=== PATIENT | female | born 1960 | race Caucasian/White ===

== ENCOUNTER → 2019-10-11 10:32 | Outpatient (CLI) | payer OTHER, SELFPAY ==
--- NOTE | ~2019-10-11 | MR_ITS ---
EXAMINATION: MR lumbar spine wo [facility] EXAM DATE: 10/11/2019 12:13 INDICATION: Low back pain, bilateral leg and foot numbness. TECHNIQUE: Multi-sequential, multiplanar MR images of the lumbar spine were obtained without contrast . Sagittal T1, T2, T2 fat saturation images. Axial T2 weighted images. There is no prior study for comparison. FINDINGS: There is an L4 burst fracture with moderate to severe loss of this vertebral body height an teriorly and centrally, and moderate loss posteriorly. There is about 3 mm retropulsion at the superi or endplate. There is mild edema within this vertebral body indicating that this is probably subacute , or has subacute component. The other vertebral body heights are maintained. There is mild disc dise ase from L3 through S1. The conus medullaris terminates at the L1/2 level and has normal signal inten sity and morphology. The vertebral bodies are aligned in the AP dimension. Probable posterior sebace ous cyst. Level by level evaluation: T12-L1: Disc does not extend beyond the endplate margin. Facet arthropathy: None. Neural foraminal stenosis: No stenosis. Central canal stenosis: No stenosis. L1-L2: There is a minimal diffuse disc bulge. Facet arthropathy: Mild. Neural foraminal stenosis: No stenosis. Central canal stenosis: No stenosis. L2-L3: There is a minimal diffuse disc bulge. Facet arthropathy: Mild. Neural foraminal stenosis: No stenosis. Central canal stenosis: No stenosis. L3-L4: There is a large diffuse disc bulge. Facet arthropathy: Moderate to severe . Ligamentum flavum enlargement. Neural foraminal stenosis: Moderate right, mild to moderate left. Central canal stenosis: Moderate. Nerve root crowding.. L4-L5: There is a moderate diffuse disc bulge. Facet arthropathy: Moderate. Neural foraminal stenosis: Mild to moderate bilateral, left greater than right. Central canal stenosis: Mild to moderate. L5-S1: There is a mild diffuse disc bulge. Facet arthropathy: Mild to moderate. Neural foraminal stenosis: Mild to moderate bilateral, left greater than right. Central canal stenosis: Mild. IMPRESSION: 1. L4 subacute-appearing burst fracture with mild retropulsion, moderate central canal stenosis at t he superior endplate. 2. Mild to moderate lower lumbar spondylosis. Reviewed, dictated and finalized at location A. IMPRESSION: 1. L4 subacute-appearing burst fracture with mild retropulsion, moderate centr al canal stenosis at the superior endplate. 2. Mild to moderate lower lumbar spondylosis.
== END ==
DX: M51.26 Other intervertebral disc displacement, lumbar region (principal); S32.000A Wedge compression fracture of unspecified lumbar vertebra, initial encounter for closed fracture; M47.816 Spondylosis without myelopathy or radiculopathy, lumbar region
CPT/HCPCS: 72148

== ENCOUNTER 2019-10-25 10:01 | Outpatient (CLI) | payer OTHER, SELFPAY ==
--- NOTE | ~2019-10-25 | DEXA_ITS ---
Bone Density Report Name: Maxine Rodriguez Age: 58 Sex: Female Ethnicity: White Date of : 1960 Indication: postmenopausal; prior fracture; Referring Provider: PHYSICIAN NOT ON STAFF Study: Bone densitometry was performed. Exam Date: October 25, 2019 Accession number: [id number] Bone Density: Region BMD T-score Z-score Classification AP Spine (L1, L2, L3) 1.056 0.3 1.6 Normal Femoral Neck (Left) 0.915 0.6 1.8 Normal Total Hip (Left) 1.058 1.0 1.8 Normal Total Hip Bilateral Avg 1.096 1.3 2.1 Normal Femoral Neck (Right) 0.820 -0.3 1.0 Normal Total Hip (Right) 1.132 1.6 2.4 Normal World Health Organization criteria for BMD impression classify patients as: Normal (T-score at or above -1.0), Osteopenia (T-score between -1.0 and -2.5), or Osteoporosis (T-score at or below -2.5). 10-year Fracture Risk: FRAX not reported because: All T-scores for Spine Total, Hip Total, Femoral Neck at or above -1.0 Prior hip or vertebral fracture Clinical Information Provided by Patient: Have had a previous hip or vertebral fracture Has had a low trauma fracture Patient maximum height was 60 Menopause Age: 50 No regular weight bearing exercise Onset of menses at age 12 Number of children 1 Impression: The patient has normal bone mass. The patient has risk factors, including: previous fracture. Discussion: INCREASED RISK OF FRACTURE DUE TO HISTORY OF FRACTURE. The patient's previous fracture puts the patient at high risk of a future fracture. In untreated patients, the risk of osteoporotic fracture increases approximately two-fold for each 1.0 SD decrease in T-score. Low bone density is not the only risk factor for fracture; also consider factors such as patient's age, frailty or poor health, risk of falling, risk of injury, previous osteoporotic fracture, family history of osteoporosis, cigarette smoking, low body weight, etc. Not everyone with a low trauma fracture has osteoporosis; osteomalacia and other metabolic bone disorders should also be considered. Patients who have osteoporosis should be evaluated for specific diseases and conditions (secondary causes) that may cause or contribute to bone loss and fracture risk. National Osteoporosis Foundation (NOF) recommends pharmacologic intervention for patients with a prior hip or vertebral fracture regardless of BMD T-score. The patient should follow a healthful lifestyle (good nutrition with adequate calcium and vitamin D, and appropriate weight-bearing exercise). Follow-Up: Consider a repeat BMD and Vertebral Fracture Assessment (VFA) exam in 2 years or sooner if medically necessary, to reassess this patient's status. Reported by: DO on 10/25/2019 10:35:00 AM. Reviewed, dictated and finalized at location ANik MIRELES
== END 2019-10-25 10:02 | disposition home or self-care (01) ==
LOC: ANHIMG 10:04
PROVIDERS: PCP Internal Medicine
DX: S22.001A Stable burst fracture of unspecified thoracic vertebra, initial encounter for closed fracture (principal); Z78.0 Asymptomatic menopausal state
CPT/HCPCS: 77080

== ENCOUNTER 2019-10-29 17:48 | Outpatient (CLI) | payer OTHER, SELFPAY ==
--- NOTE | ~2019-10-29 | CT_ITS ---
EXAMINATION: CT lumbar spine wo con DATE: 10/29/2019 18:30 INDICATION: Closed burst fracture of lumbar vertebra. TECHNIQUE: Computed tomography (CT) of the lumbar spine was performed without intravenous contrast. A utomated exposure control and iterative reconstruction technique were employed. The dose-length produ ct was 1220.94 mGy-cm. COMPARISON: Lumbar spine MRI 10/11/2019 FINDINGS: There is 9 degrees levocurvature of lumbar spine. There is a burst fracture of L4 with 3/5 loss of height and retropulsion of bone 5 mm into central spinal canal. Lucent fracture lines remain visible. There is mildly decreased disc height at L3-L4. The following disc levels are specifically d iscussed: L1-L2: The disc does not extend beyond the endplate margin. There is mild bilateral facet joint osteo arthritis. There is no neural foraminal stenosis. There is no central canal stenosis. L2-L3: The disc is mildly bulging. There is moderate right and mild left facet joint osteoarthritis. There is mild bilateral neural foraminal stenosis. There is no central canal stenosis. L3-L4: The disc is bulging. There is severe bilateral facet joint osteoarthritis. There is moderate r ight and mild left neural foraminal stenosis. There is moderate central canal stenosis. L4-L5: The disc is bulging. There is severe bilateral facet joint osteoarthritis. There is mild bilat eral neural foraminal stenosis. There is mild central canal stenosis. L5-S1: The disc is bulging. There is severe bilateral facet joint osteoarthritis. There is mild bilat eral neural foraminal stenosis. There is mild central canal stenosis. IMPRESSION: 1. Subacute L4 burst fracture, stable from 10/11/2019. 2. Moderate lumbar spondylosis. Reviewed, dictated and finalized at location B.
== END 2019-10-29 17:49 | disposition home or self-care (01) ==
PROVIDERS: PCP Internal Medicine
DX: S22.001A Stable burst fracture of unspecified thoracic vertebra, initial encounter for closed fracture (principal); S32.041A Stable burst fracture of fourth lumbar vertebra, initial encounter for closed fracture; M47.816 Spondylosis without myelopathy or radiculopathy, lumbar region
CPT/HCPCS: 72131

== ENCOUNTER 2020-01-13 15:00 | Outpatient (RCR) | payer OTHER, SELFPAY ==
--- NOTE | 2019-11-17 10:42 | PTOPEVAL ---
PHYSICAL THERAPY EVALUATION AND PLAN OF CARE Thank you for referring Maxine Rodriugez to [facility].? The patient is scheduled to be seen for therapy? 2x/week for 4 weeks. Please review, sign, date and return this plan of care JULITO. I agree with and certify that the following plan of care is medically necessary. Referring Physician Date Evaluation Outpatient Past Medical History Musculoskeletal History Hx Back Injury Yes: stable burst fracture L4, kyphoplasty 10/31/2019 Endocrine History Hx Diabetes Yes: diet controlled Evaluation Information Problem Diagnosis closed burst fracture of L4 Onset 06/2019 Subjective Information In June 2019 she fell while walking her dog and immediately had excessive pain in the lower back. Went to urgent care and there was no imaging and no positive testing. Went to a chiropractor who adjusted one time but otherwise did modalities without relief of pain. Went to a different chiropractor who did x-rays and Maxine was informed of a compression fracture. This chiropractor did adjustments and it was going pretty good. Come 05 of September, her dog was scared and jumped on her hips which started everything over and was in a lot of pain. On October 05 she started to experience numbness and tingling in her bilateral legs. Dr. Calderón did a kyphoplasty. After the kyphoplasty the numbness and tingling did resolve for a day, but then returned to as it was. She went to the emergency department and everything was determined to be negative.Maxine is walking every day (5-7 minutes twice) and she works in her basement. She now goes up and down the stairs to go to the restroom. Notes that there is soreness in the area of the fracture but she is told that b/c she has stenosis in that area also it could be causing some of the soreness. She is also told that the numbness/tingling could last 6weeks to 6months. Bilateral Spine, Lumbar Reported Pain Level 1 Pain Frequency Chronic,Intermittent Lowest Pain Intensity 0 Greatest Pain Intensity 3 Pain Aggravating Factors Sitting Other Pain Aggravating Factors pain/numbness comes and goes Pain Behaviors Anxious Pain Relief Interventions Used By Medication,Walking Patient Lumbar ROM Lumbar Flexion (0-90) 10 Query Text:Active in Degrees Lumbar Extension (0-40) 12 Query Text:Active in Degrees Lateral Rotation Right (0-45) 23 Query Text:Active in Degrees Lateral Rotation Left (0-45) 19 Query Text:Active in Degrees Lumbar Comments all flexion is at the hips Lower Extremity Muscle Strength Testing Hip Strength Right Hip Flexion Strength 4+ Good + Hip Extension Strength 4- Good - Hip Abduction Strength 4+ Good + Left Hip Flexion Strength 4 Good Hip Extension Strength 3+ Fair + Hip Abduction Strength 4 Good Hip Strength Comments c/o some discomfort in left thigh during MMT; Knee Str
--- NOTE | 2019-12-15 16:49 | PTOPEVAL ---
PHYSICAL THERAPY PROGRESS REPORT AND PLAN OF CARE UPDATE Thank you for referring Maxine Rodriguez to [facility] [place].? The patient is scheduled to be seen for therapy? 1x/week for 4 weeks. Please review, sign, date and return this plan of care JULITO. I agree with and certify that the following plan of care is medically necessary. Referring Physician Date Progress Diagnosis closed burst fracture of L4 Onset 06/2019 Subjective Information Overall throughout therapy has Query Text:As Reported By Patient/ been doing well overall. Last Family Sunday she notes an increase in numbness again. Not to what it was, but a significant amount stating that it pretty much stays the same without a lot of fluctuation. Reports that her exercise ball did break underneath her and she because she has caught herself twisting quickly so she believes she has some irritation. Self Report Pain Assessment Bilateral Spine, Lumbar Reported Pain Level 1 Pain Description Soreness Pain Aggravating Factors Changing Position,Prolonged Position,Sitting Pain Behaviors None Interventions Used By Clinicians Exercise Pain Score Pain Score 1: Self Report Cervical and Lumbar ROM Lumbar ROM Lumbar Flexion (0-90) 10 Query Text:Active in Degrees Lumbar Extension (0-40) 15 Query Text:Active in Degrees Lateral Rotation Right (0-45) 25 Query Text:Active in Degrees Lateral Rotation Left (0-45) 25 Query Text:Active in Degrees Lumbar Comments all flexion is at the hips Hip Strength Right Hip Flexion Strength 5 Normal Hip Extension Strength 4- Good - Hip Abduction Strength 4+ Good + Left Hip Flexion Strength 4+ Good + Hip Extension Strength 3+ Fair + Hip Abduction Strength 4 Good Knee Strength Bilateral Knee Flexion Strength 5 Normal Knee Extension Strength 5 Normal Muscle Length Testing Piriformis w/Hip Flexion >90 Degrees (R) Moderate Tightness,(L) Moderate Tightness Left Hamstring Length -20 Query Text:(90 - 90 Position) Right Hamstring Length -20 Query Text:(90 - 90 Position) Right Prone Knee Flexor Muscle Length 105degrees Left Prone Knee Flexor Muscle Length 110degrees Palpation
--- NOTE | 2020-01-13 15:41 | PTOPEVAL ---
PHYSICAL THERAPY DISCHARGE NOTE Thank you for referring Maxine Rodriguez to [facility].? Please review, sign, date and return this plan of care JULITO. I agree with and certify that the following plan of care is medically necessary. Referring Physician Date Discharge Outpatient Past Medical History Musculoskeletal History Hx Back Injury Yes: stable burst fracture L4, kyphoplasty 10/31/2019 Endocrine History Hx Diabetes Yes: diet controlled Diagnosis closed burst fracture of L4 Onset 06/2019 Subjective Information does her exercises diligently Query Text:As Reported By Patient/ every night. Switches up the Family cardio between bike and stepper and does walk every morning; does her core exercises and has her help her stretching. States numbness and other sytmptoms are between 50% and 75% resolved and are intermittent Pain Assessment Timing of Pain Assessment Timing of Pain Assessment Pre-Treatment Self Report Self Report Pain Level 0 Pain Score Pain Score 0: Self Report Lower Extremity Muscle Strength Testing Hip Strength Right Hip Flexion Strength 5 Normal Hip Extension Strength 4+ Good + Hip Abduction Strength 5 Normal Left Hip Flexion Strength 5 Normal Hip Extension Strength 4+ Good + Hip Abduction Strength 5 Normal Knee Strength Bilateral Knee Flexion Strength 5 Normal Knee Extension Strength 5 Normal Palpation moderate tightness of thoracolmbar fascia; significant muscle tension noted throughout ITB and glutes, right>left - continues but does not bother patient Balance Assessment 5 Time Sit to Stand Time in Seconds 7.54 5 Time Sit to Stand Comments arm across chest Query Text:Normative Data: If Greater Than 15 Seconds, 74% Increase Risk for Recurrent Falls Gait Assessment 2 Minute Walk Total Distance Walked (feet) 429 2 Minute Walk Gait Speed Score (feet/ 3.57 second) 2 Minute Walk Test Comments 1month ago = 386ft, 3.21ft/ second PT Clinical Summary Maxine is a 59 yo female presenting to outpatient physical therapy 6months s/p L4 burst fracture with
== END 2020-01-14 12:47 | disposition home or self-care (01) ==
LOC: ANHPT 15:00
PROVIDERS: PCP Internal Medicine
DX: S22.001D Stable burst fracture of unspecified thoracic vertebra, subsequent encounter for fracture with routine healing (principal)
CPT/HCPCS: 97110; 97140; 97162

== ENCOUNTER → 2020-04-03 08:42 | Outpatient (CLI) | payer OTHER, SELFPAY ==
--- NOTE | ~2020-04-03 | MM_ITS ---
EXAMINATION: MM screening john BI w jonathan HISTORY: Screening mammogram TECHNIQUE: Craniocaudal and mediolateral oblique 3-D tomosynthesis images were obtained and synthetic 2-D images were generated. CAD analysis was submitted and interpreted. COMPARISON: 10/26/2018, 08/18/2017, 07/29/2016 bilateral digital screening mammogram examinations BREAST PARENCHYMAL COMPOSITION: There are scattered areas of fibroglandular density. FINDINGS: Stable bilateral axillary tail circumscribed low-density opacities consistent with benign i ntramammary lymph nodes. Occasional benign calcifications. There is no evidence of suspicious mass, c alcification, or architectural distortion to suggest malignancy in either breast. There has been no s uspicious interval change. IMPRESSION: 1. No mammographic evidence of malignancy. 2. Recommend routine screening mammography in one year. BI-RADS Category 2: Benign finding(s). Reviewed, dictated and finalized at location A. 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
== END ==
PROVIDERS: Visit Provider Obstetrics & Gynecology
DX: Z12.31 Encounter for screening mammogram for malignant neoplasm of breast (principal)
CPT/HCPCS: 77063; 77067

== ENCOUNTER 2020-08-18 18:42 | Emergency (ER) | payer OTHER, SELFPAY ==
[2020-08-18 19:43] VITALS: BP 157/80; PULSE 84; RESP 12; TEMP 36.6; O2SAT 100
--- NOTE | 2020-08-18 19:48 | ECG_ITS ---
Measurements Intervals [place] Rate: 89 P: 61 MT: 187 QRS: 39 QRSD: 78 T: 6 QT: 339 QTc: 413 Interpretive Statements SINUS RHYTHM POSSIBLE LEFT ATRIAL ENLARGEMENT LOW QRS VOLTAGE IN PRECORDIAL LEADS NONSPECIFIC ST & T-WAVE ABNORMALITY- ANTEROLAT/INF LEADS BASELINE ARTIFACT- V5 BORDERLINE ECG Electronically Signed On 08-19-2020 7:29:49 CDT by Ryan Kingsley D.O.
[2020-08-18 20:16] LABS: Basophils Percent Auto 0.2 % (0.2-1.2); Eosinophils Percent Auto 0.3 % (0-4.4); Hematocrit 44.1 % (37.0-47.0); Hemoglobin 14.2 g/dL (12.0-15.0); Immature Granulocyte Absolute 0.04 K/mm3 (0.00-0.031); Immature Granulocyte Percent A 0.3 % (0-0.5); Lymphocytes Absolute Auto 3.52 K/mm3 (0.9-3.2); Lymphocytes Percent Auto 26.4 % (18.3-44.2); Mean Corpuscular HGB Conc 32.2 g/dl (32-36); Mean Corpuscular Hemoglobin 27.5 pg (26-34); Mean Corpuscular Volume 85.5 fl (80-100); Monocytes Absolute Auto 0.9 K/mm3 (0.1-0.6); Monocytes Percent Auto 6.5 % (2.6-8.5); Neutrophils Absolute Auto 8.8 K/mm3 (1.3-6.7); Neutrophils Percent Auto 66.3 % (45.5-73.1); Platelet Count Result 218 k/mm3 (150-375); Red Blood Count 5.16 M/mm3 (4.2-5.4); Red Cell Distribution Width 14.5 % (11.5-14.5); White Blood Count 13.3 K/mm3 (4.5-10.0)
[2020-08-18 20:23] LABS: Add Urine Microscopic? YES; Appearance Urine Clear (Clear); Bacteria Urine 1+ /hpf; Bilirubin Urine Negative (Negative); Blood Urine Negative (Negative); Color Urine Yellow (Yellow); Glucose Urine UA Negative (Negative); Ketones Urine Negative (Negative); Leukocyte Esterase Ur Trace LEU/UL (Negative); Mucus Urine Rare /lpf; Nitrate Urine Negative (Negative); Protein Urine Negative (Negative); RBC Urine 0-2 /hpf (0-2); Specific Grav Ur 1.019 (1.001-1.035); Squamous Epithelial Cell Urine Many /hpf (Few); Urobilinogen Urine Negative mg/dL (<2.0)
[2020-08-18 20:26] LABS: Alanine Aminotransferase 26 U/L (4-35); Albumin Level 4.4 g/dL (3.5-5.1); Alkaline Phosphatase 99 U/L (38-126); Anion Gap 8 mmol/L (8-16); Aspartate Amino Transferase 30 U/L (14-36); Bilirubin,Total 0.6 mg/dL (0.2-1.3); Blood Urea Nitrogen 24 mg/dL (7-17); Calcium 9.5 mg/dL (8.4-10.2); Carbon Dioxide 27 mmol/L (22-30); Chloride 104 mmol/L (98-107); Estimated CRCL calculation 90 ml/min; Estimated Glomerular Filt Rate > 60; Glucose 124 mg/dL (65-105); Lipase 197 U/L (23-300); Potassium 3.5 mmol/L (3.4-5.0); Sodium 139 mmol/L (137-145)
[2020-08-18 22:02] VITALS: BP 180/75; PULSE 97; RESP 26; O2SAT 100
--- NOTE | 2020-08-18 22:20 | ED.GENADULT ---
HPI - General Adult General Chief complaint: Nausea/Vomiting/Diarrhea Stated complaint: abd pain, diarrhea Time Seen by Provider: 08/18/20 21:58 Source: patient and family Mode of arrival: ambulatory Limitations: no limitations History of Present Illness HPI narrative: 59-year-old with a history of hypertension, diabetes here with complaints of lower abdominal cramping associated with some diarrhea. Patient states that she was doing fine all of a sudden she started having lower abdominal cramping followed by diarrhea soon after she became lightheaded was concerned and was brought her to the ER. Patient presently has no chest pain no abdominal pain no cramping. Onset (ago): hour(s) (4) Location: abdomen Radiation: non-radiation Severity: mild Quality: aching Pain Consistency: now resolved Relieving factors: none Exacerbating factors: none Associated symptoms: denies other symptoms Related Data Home Medications Medication Instructions Recorded Confirmed acetaminophen 500 mg tablet 1,000 mg PO BID PRN tablet 09/26/19 04/07/20 Allergies Allergy/AdvReac Type Severity Reaction Status Date / Time aspirin Allergy Mild Unknown Verified 04/05/20 16:39 erythromycin base Allergy Mild Unknown Verified 04/05/20 16:39 Penicillins Allergy Mild Unknown Verified 04/05/20 16:39 tetracycline Allergy Mild Unknown Verified 04/05/20 16:39 Review of Systems Review of Systems: All systems reviewed & are unremarkable except as noted in HPI and below Constitutional: Constitutional: Reports no additional constitutional complaints Eyes: Eyes: Reports no additional eye complaints ENT: Reports system reviewed and no additional complaints, except as documented Cardiovascular: Cardiovascular: Reports no additional cardiovascular complaints Respiratory: Respiratory: Reports no additional respiratory complaints Gastrointestinal: Gastrointestinal: Reports as per HPI Musculoskeletal: Musculoskeletal: Reports no additional musculoskeletal complaints Integumentary/Breasts: Skin/Breast: Reports system reviewed and no additional complaints, except as docu Neurologic: Reports system reviewed and no additional complaints, except as documented PMFSH Surgical History Surgical History H/O section Family History Family History Father , passed from massive heart attack No problems noted. Mother Hypertension Gout Age related osteoporosis GERD (gastroesophageal reflux disease) Diverticulitis Anemia Sibling Asthma Allergies Sibling Hypertension Grandparent Heart disease Diabetes mellitus Hypertension Social History Social History Smoking status: Never smoker Second hand tobacco smoke exposure: No Alcohol intake: never Substance use: never Gender identity (if verbalized by the patient): Female Exam Narrative: Exam Narrative: GENERAL: Well-appearing, well-nourished, and in no acute distress. HEAD: Normocephalic, atraumatic. EYES: PERRLA and EOMI. NECK: Supple. CHEST: Clear to auscultation. No respiratory distress. HEART: Regular rate and rhythm. No murmur heard. Normal peripheral pulses. ABDOMEN: Soft, nontender, nondistended, normal active bowel sounds. EXTREMITIES: Normal range of motion. No edema. SKIN: Warm, dry, no rash. NEURO: No focal deficits. Alert and oriented x3. PSYCH: Normal mood and affect. Course Course Emergency Course: Patient presently has no complaints I have reviewed her lab work with her including EKG she feels fine and wants to go home. Vital Signs Vital signs: Vital Signs Temperature 36.6 C 08/18/20 19:43 Pulse Rate 84 08/18/20 19:43 Respiratory Rate 12 08/18/20 19:43 Blood Pressure 157/80 H 08/18/20 19:43 Pulse Oximetry 100 08/18/20 19:43 Temperature 36.6 C
[2020-08-18 22:39] VITALS: BP 166/80; PULSE 77; RESP 22; O2SAT 96
== END 2020-08-18 22:39 | disposition home or self-care (01) ==
PROVIDERS: Emergency Provider Family Medicine; PCP Physician Assistant
DX: R10.30 Lower abdominal pain, unspecified (principal); I10 Essential (primary) hypertension; E11.9 Type 2 diabetes mellitus without complications; R94.31 Abnormal electrocardiogram [ECG] [EKG]
CPT/HCPCS: 36415; 80053; 81001; 83690; 85025; 93005; 99283

== ENCOUNTER → 2021-06-11 11:27 | Outpatient (CLI) | payer OTHER, SELFPAY ==
--- NOTE | ~2021-06-11 | MM_ITS ---
EXAMINATION: MM screening john BI w jonathan HISTORY: Screening mammogram TECHNIQUE: Craniocaudal and mediolateral oblique 3-D tomosynthesis images were obtained and synthetic 2-D images were generated. Bilateral rotated lateral CC views. CAD analysis was submitted and interp reted. COMPARISON: No prior mammogram is available for comparison at this institution. BREAST PARENCHYMAL COMPOSITION: FINDINGS: There are circumscribed opacities in the posterior outer mid to upper right breast, likely benign lymph nodes. There is no evidence of suspicious mass, calcification, or architectural distorti on to suggest malignancy in either breast. There has been no suspicious interval change. IMPRESSION: 1. No mammographic evidence of malignancy. 2. Recommend routine screening mammography in one year. BI-RADS Category 2: Benign finding(s). Reviewed, dictated and finalized at location A.
== END ==
PROVIDERS: Visit Provider Obstetrics & Gynecology
DX: Z12.31 Encounter for screening mammogram for malignant neoplasm of breast (principal)
CPT/HCPCS: 77063; 77067

== ENCOUNTER 2022-06-15 07:23 | Emergency (ER) | payer OTHER, SELFPAY ==
--- NOTE | ~2022-06-15 | CT_ITS ---
EXAMINATION: CT brain wo con DATE: 06/15/2022 08:44 INDICATION: Head injury. TECHNIQUE: Computed tomography (CT) of the head was performed without intravenous contrast. The mA wa s adjusted according to patient size. Iterative reconstruction technique was employed. The dose-lengt h product was 605.33 mGy-cm. COMPARISON: None FINDINGS: There is no intracranial hemorrhage, acute infarction, or abnormal intracranial mass lesion . The ventricles are normal in size. The orbits are normal. There is mild mucosal thickening in the p aranasal sinuses. The mastoid air cells are normal. IMPRESSION: 1. Normal brain. Reviewed, dictated and finalized at location A. IMPRESSION: 1. Normal brain.
--- NOTE | ~2022-06-15 | CT_ITS ---
EXAMINATION: CT facial & cervical spine wo DATE: 06/15/2022 08:45 INDICATION: Head injury. TECHNIQUE: Computed tomography (CT) of the maxillofacial region and cervical spine was performed with out intravenous contrast. Automated exposure control and iterative reconstruction technique were empl oyed. The dose-length product was 449.71 mGy-cm. COMPARISON: None FINDINGS: MAXILLOFACIAL CT: There is rightward deviation of the nasal septum. No fracture. There is mucosal thickening in the par anasal sinuses. The orbits are normal. CERVICAL SPINE CT: There is 5 degrees dextrocurvature of cervical spine. There is mild kyphosis of cervical spine. Verte bral body heights are normal. There is mildly decreased disc height at C5-C6. There is ossification o f posterior longitudinal ligament at C5 and C6. The following disc levels are specifically discussed: C2-C3: There is no uncovertebral joint osteoarthritis. There is mild bilateral facet joint osteoarthr itis. There is no neural foraminal stenosis. There is no central canal stenosis. C3-C4: There is no uncovertebral joint osteoarthritis. There is mild left facet joint osteoarthritis. There is no neural foraminal stenosis. There is no central canal stenosis. C4-C5: There is no uncovertebral joint osteoarthritis. There is severe left facet joint osteoarthriti s. There is no neural foraminal stenosis. There is no central canal stenosis. C5-C6: There is moderate right and mild left uncovertebral joint osteoarthritis. There is no facet uma int osteoarthritis. There is no neural foraminal stenosis. There is mild central canal stenosis. C6-C7: There is no uncovertebral joint osteoarthritis. There is severe left facet joint osteoarthriti s. There is mild left neural foraminal stenosis. There is mild central canal stenosis. C7-T1: There is no uncovertebral joint osteoarthritis. There is mild bilateral facet joint osteoarthr itis. There is no neural foraminal stenosis. There is mild central canal stenosis. IMPRESSION: 1. No fracture. 2. Mild cervical spondylosis. Reviewed, dictated and finalized at location A.
--- NOTE | ~2022-06-15 | XR_ITS ---
[XR_RIBSBI_CR ] INDICATION: Status post fall. Bilateral rib pain. TECHNIQUE: Frontal projection of the upper ribs, frontal projection of the lower ribs, oblique projec tion of all the ribs, frontal inspiratory chest x-ray for interpretation. FINDINGS: There are no displaced rib fractures identified. There are no soft tissue abnormality see n. The lungs are clear. There are degenerative changes of the shoulders. There is scoliosis. Modera te thoracic spondylosis. IMPRESSION: 1:No acute displaced rib fractures. Reviewed, dictated and finalized at location L.
[2022-06-15 07:23] VITALS: BP 178/67; PULSE 77; RESP 18; TEMP 36.4; O2SAT 100
--- NOTE | 2022-06-15 07:59 | ED.FALL ---
HPI - Fall General Chief Complaint: Fall Stated Complaint: fall, facial injury Time Seen by Provider: 06/15/22 07:54 Source: patient Mode of arrival: ambulatory Limitations: no limitations History of Present Illness HPI Narrative: Patient got pulled by her dog, fell forward face down complaining of bilateral chest pain, mouth and dental pain, possible loss of consciousness for 2 seconds. Came by private car, not on blood thinners Related Data Home Medications Medication Instructions Recorded Confirmed acetaminophen 500 mg tablet 1,000 mg PO BID PRN 09/26/19 04/25/22 (Tylenol Extra Strength) Allergies Allergy/AdvReac Type Severity Reaction Status Date / Time atorvastatin Allergy Intermediate drops Verified 06/15/22 07:44 blood sugars aspirin Allergy Mild Unknown Verified 06/15/22 07:44 erythromycin base Allergy Mild Unknown Verified 06/15/22 07:44 Penicillins Allergy Mild Unknown Verified 06/15/22 07:44 tetracycline Allergy Mild Unknown Verified 06/15/22 07:44 Review of Systems Review of Systems: All systems reviewed & are unremarkable except as noted in HPI and below PMFSH Past Medical History Medical History Abnormal Pap smear of cervix 04/18/2005 ascus neg hpv Anxiety Depression High cholesterol History of endometrial biopsy 03/11/02 EMB--proliferative phase, anovulatory cycle Panic attacks Screening mammogram, encounter for Screening mammogram, encounter for Sleep apnea Spinal stenosis Surgical History Surgical History H/O section 1991 History of back surgery History of [place] [facility] [place]abnormal uterine bleeding History of tubal ligation 1991 Family History Family History Father , passed from massive heart attack Hypertension Diabetes mellitus Mother Hypertension Gout Age related osteoporosis GERD (gastroesophageal reflux disease) Diverticulitis Anemia Osteoporosis Sibling Asthma Brother - age 55 Allergies Sibling Hypertension Grandparent Heart disease Diabetes mellitus Hypertension Social History Social History Smoking status: Never smoker Second hand tobacco smoke exposure: No Alcohol intake: never Substance use: never Substance use type: does not use Living arrangements: other Additional living arrangements comments: spouse Occupation/Education: occupation Additional occupation/education comments: record retrieval Gender identity (if verbalized by the patient): Female Sexual Orientation (if Verbalized by the Patient): Straight or Heterosexual Exam Narrative: General appearance: Well-developed, well-nourished Skin: Normal color Head: Normocephalic, nontraumatic Eyes: Clear conjunctiva ENT: Oropharynx normal, ears normal, nose normal, bruised upper lip, no laceration Neck: Supple, nontender Chest and respiratory: Airway patent, no respiratory distress, no accessory muscle use, mild diffuse tenderness of the chest bilaterally, no bruises. Heart: Regular rate/rhythm Abdomen: Soft, nontender, no organomegaly, quiet bowel sounds Vascular: Normal peripheral pulses, normal capillary refill. Musculoskeletal: Normal range of motion, nontender back Neurologic: Alert and oriented ?3, COLLAR TRIMMER is normal as tested, no gross motor deficit Course Reevaluation(s) Reevaluation #1: No new changes, work-up showed no acute abnormalities, patient is ready to go home Date: 06/15/22 Time: 09:11 Vital Signs
== END 2022-06-15 09:20 | disposition home or self-care (01) ==
PROVIDERS: Emergency Provider Emergency Medicine; PCP Emergency Medicine
DX: S20.219A Contusion of unspecified front wall of thorax, initial encounter (principal); S00.531A Contusion of lip, initial encounter; E78.00 Pure hypercholesterolemia, unspecified; G47.30 Sleep apnea, unspecified; M47.812 Spondylosis without myelopathy or radiculopathy, cervical region; W18.39XA Other fall on same level, initial encounter; Y93.K1 Activity, walking an animal
CPT/HCPCS: 70450; 70486; 71110; 72125; 99284

== ENCOUNTER → 2022-07-15 08:21 | Outpatient (CLI) | payer OTHER, SELFPAY ==
--- NOTE | ~2022-07-15 | MM_ITS ---
EXAMINATION: MM screening [facility] BI w jonathan HISTORY: Screening mammogram TECHNIQUE: Craniocaudal and mediolateral oblique 3-D tomosynthesis images were obtained and synthetic 2-D images were generated. CAD analysis was submitted and interpreted. COMPARISON: 06/11/2021, 04/03/2020, 10/26/2018 BREAST PARENCHYMAL COMPOSITION: There are scattered areas of fibroglandular density. FINDINGS: No suspicious mass, calcification, or architectural distortion are identified in either jones ast to suggest malignancy. There has been no suspicious interval change. IMPRESSION: 1. No mammographic evidence of malignancy. 2. Recommend routine screening mammography in one year. BI-RADS Category 1: Negative Reviewed, dictated and finalized at location A.
== END ==
PROVIDERS: PCP Emergency Medicine; Visit Provider Obstetrics & Gynecology
DX: Z12.31 Encounter for screening mammogram for malignant neoplasm of breast (principal)
CPT/HCPCS: 77063; 77067

== ENCOUNTER 2022-07-28 08:08 | Emergency (ER) | payer OTHER, SELFPAY ==
[2022-07-28] VITALS (7 sets, daily range): BP systolic 136–164; BP diastolic 49–85; PULSE 72–85; RESP 16–20; TEMP 36.4; O2SAT 98–100
--- NOTE | 2022-07-28 08:22 | ECG_ITS ---
Measurements Intervals [place] Rate: 84 P: 46 WA: 144 QRS: 18 QRSD: 86 T: -2 QT: 361 QTc: 427 Interpretive Statements SINUS RHYTHM BORDERLINE T WAVE ABNORMALITY- ANT/INF LEADS BORDERLINE ECG COMPARED TO ECG 08/18/2020 19:56:28 NO SIGNIFICANT CHANGES Electronically Signed On 07-28-2022 8:32:33 CDT by Ryan Kingsley D.O.
[2022-07-28 08:48] LABS: Basophils Percent Auto 0.4 % (0.2-1.2); Eosinophils Absolute Auto 0.1 K/mm3 (0-0.3); Eosinophils Percent Auto 1.1 % (0-4.4); Hematocrit 42.8 % (37.0-47.0); Hemoglobin 14.1 g/dL (12.0-15.0); Immature Granulocyte Absolute 0.01 K/mm3 (0.00-0.031); Immature Granulocyte Percent A 0.1 % (0-0.5); Lymphocytes Absolute Auto 3.71 K/mm3 (0.9-3.2); Lymphocytes Percent Auto 44.8 % (18.3-44.2); Mean Corpuscular HGB Conc 32.9 g/dl (32-36); Mean Corpuscular Hemoglobin 28.2 pg (26-34); Mean Corpuscular Volume 85.6 fl (80-100); Mean Platelet Volume 10.5 fl (7.4-10.4); Monocytes Absolute Auto 0.6 K/mm3 (0.1-0.6); Monocytes Percent Auto 7.4 % (2.6-8.5); Neutrophils Absolute Auto 3.8 K/mm3 (1.3-6.7); Neutrophils Percent Auto 46.2 % (45.5-73.1); Platelet Count Result 241 k/mm3 (150-375); Red Cell Distribution Width 13.8 % (11.5-14.5); White Blood Count 8.3 K/mm3 (4.5-10.0)
[2022-07-28 09:00] LABS: Alanine Aminotransferase 37 U/L (6-35); Albumin Level 4.6 g/dL (3.5-5.1); Alkaline Phosphatase 87 U/L (38-126); Anion Gap 8 mmol/L (8-16); Aspartate Amino Transferase 33 U/L (14-36); Blood Urea Nitrogen 22 mg/dL (7-17); Calcium 9.3 mg/dL (8.4-10.2); Carbon Dioxide 30 mmol/L (22-30); Chloride 102 mmol/L (98-107); Estimated CRCL calculation 70 ml/min; Estimated Glomerular Filt Rate > 60; Glucose 103 mg/dL (65-110); Potassium 3.4 mmol/L (3.4-5.0); Sodium 140 mmol/L (137-145)
[2022-07-28] MEDS: MECLIZINE HCL 25 MG TABLET PO (09:41)
--- NOTE | 2022-07-28 10:54 | ED.DIZZY ---
HPI - Dizziness General Chief Complaint: Dizziness Stated Complaint: dizzy, R. ear pain Time Seen by Provider: 07/28/22 08:24 History of Present Illness HPI Narrative: Patient is a 61-year-old female who presents ER with dizziness. Significantly worsened this morning when waking up. Rotational in nature. Worse with head movements. She had some discomfort in the right ear after using a Q-tip on that side. She also reports over the last week she has had sinus congestion and recently started an antibiotic due to concern for infection. No fevers or chills or sweats. No unilateral weakness or numbness. No additional concerns. Related Data Home Medications Medication Instructions Recorded Confirmed acetaminophen 500 mg tablet 1,000 mg PO BID PRN 09/26/19 04/25/22 (Tylenol Extra Strength) Allergies Allergy/AdvReac Type Severity Reaction Status Date / Time atorvastatin Allergy Intermediate drops Verified 06/21/22 14:37 blood sugars aspirin Allergy Mild Unknown Verified 06/21/22 14:37 erythromycin base Allergy Mild Unknown Verified 06/21/22 14:37 Penicillins Allergy Mild Unknown Verified 06/21/22 14:37 tetracycline Allergy Mild Unknown Verified 06/21/22 14:37 Review of Systems Review of Systems: All systems reviewed & are unremarkable except as noted in HPI and below Constitutional: Constitutional: Denies chills and Denies fever(s) ENT: Reports dizziness, Reports nasal congestion and Reports sinus pressure Respiratory: Respiratory: Denies cough, Denies dyspnea and Denies wheezing Neurologic: Denies Abnormal speech present, Reports dizziness, Denies focal weakness and Denies numbness PMFSH Past Medical History Medical History Abnormal Pap smear of cervix 04/18/2005 ascus neg hpv Anxiety Depression High cholesterol History of endometrial biopsy 03/11/02 EMB--proliferative phase, anovulatory cycle Panic attacks Screening mammogram, encounter for Screening mammogram, encounter for Sleep apnea Spinal stenosis Surgical History Surgical History H/O section 1991 History of back surgery History of hysteroscopy 1981 hscope d&c--abnormal uterine bleeding History of tubal ligation 1991 Family History Family History Father , passed from massive heart attack Hypertension Diabetes mellitus Mother Hypertension Gout Age related osteoporosis GERD (gastroesophageal reflux disease) Diverticulitis Anemia Osteoporosis Sibling Asthma Brother - age 55 Allergies Sibling Hypertension Grandparent Heart disease Diabetes mellitus Hypertension Social History Social History Smoking status: Never smoker Second hand tobacco smoke exposure: No Alcohol intake: never Substance use: never Substance use type: does not use Living arrangements: other Additional living arrangements comments: spouse Occupation/Education: occupation Additional occupation/education comments: record retrieval Gender identity (if verbalized by the patient): Female Sexual Orientation (if Verbalized by the Patient): Straight or Heterosexual Exam Narrative: GENERAL: Well-appearing, well-nourished, and in no acute distress. HEAD: Normocephalic, atraumatic. EYES: PERRL and EOMI. no nystagmus. ENT: Mucous membranes moist. TMs normal bilaterally. No cerumen impaction. CHEST: Clear to auscultation. No respiratory distress. HEART: Regular rate and rhythm. Normal peripheral pulses. ABDOMEN: Soft, nontender, nondistended. EXTREMITIES: Normal range of motion. No edema. NEURO: Alert and oriented x3. PSYCH: Normal mood and affect. Course Course Emergency Course: Dizziness significantly improved with meclizine. Discussed outpatient treatment an
== END 2022-07-28 11:08 | disposition home or self-care (01) ==
PROVIDERS: Emergency Provider Emergency Medicine; PCP Emergency Medicine
DX: R42 Dizziness and giddiness (principal); E78.00 Pure hypercholesterolemia, unspecified; G47.30 Sleep apnea, unspecified; R94.31 Abnormal electrocardiogram [ECG] [EKG]
CPT/HCPCS: 36415; 80053; 85025; 93005; 99284; A9270

== ENCOUNTER 2023-08-11 08:50 | Outpatient (CLI) | payer OTHER, SELFPAY ==
--- NOTE | ~2023-08-11 | MM_ITS ---
EXAMINATION: MM screening [facility] BI w jonathan HISTORY: Screening mammogram TECHNIQUE: Craniocaudal and mediolateral oblique 3-D tomosynthesis images were obtained and synthetic 2-D images were generated. CAD analysis was submitted and interpreted. COMPARISON: 07/15/2022, 06/11/2021 bilateral screening mammogram examinations BREAST PARENCHYMAL COMPOSITION: There are scattered areas of fibroglandular density. FINDINGS: There is no evidence of suspicious mass, calcification, or architectural distortion to sugg est malignancy in either breast. There has been no suspicious interval change. IMPRESSION: 1. No mammographic evidence of malignancy. 2. Recommend routine screening mammography in one year. BI-RADS Category 1: Negative Reviewed, dictated and finalized at location A.
== END 2023-08-11 08:51 ==
LOC: MICIMG 08:51
PROVIDERS: PCP Emergency Medicine; Visit Provider Student in an Organized Health Care Education/Training Program
DX: Z12.31 Encounter for screening mammogram for malignant neoplasm of breast (principal)
CPT/HCPCS: 77063; 77067

== ENCOUNTER 2024-04-09 08:22 | Outpatient (CLI) | payer OTHER, SELFPAY ==
--- NOTE | ~2024-04-09 | US_ITS ---
EXAMINATION TYPE: US breast LT limited COMPARISON: NONE REASON FOR STUDY: 1 cm lump @ 1oclock position on left breast TECHNIQUE: Targeted sonographic evaluation of the left breast was performed. INTERPRETATION: At the 12:00 position left breast, 15 cm from the nipple, there is a 7 x 6 x 6 mm lobulated cystic ma ss with a superficially located, with suggestion of a subtle tract extending to the skin surface. Fin dings are most compatible with sebaceous cyst. IMPRESSION: Mildly lobulated 7 x 6 x 6 mm cystic lesion at the area of concern, suggestive of a sebaceous cyst. C linical follow-up advised. Repeat imaging recommended if the lesion progresses or fails to resolve. BI-RADS CATEGORY: BI-RADS 3: Probably benign Reviewed, dictated and finalized at [facility]. ERTY ASSISTANT IMPRESSION: Mildly lobulated 7 x 6 x 6 mm cystic lesion at the area of concern, suggestive of a sebaceous cyst. Clinical follow-up advised. Repeat imaging recommended if the lesion progresses or fails to resolve. BI-RADS CATEGORY: BI-RADS 3: Probably benign
== END 2024-04-09 08:23 | disposition home or self-care (01) ==
PROVIDERS: PCP Emergency Medicine; Visit Provider Obstetrics & Gynecology
DX: N60.02 Solitary cyst of left breast (principal); N63.21 Unspecified lump in the left breast, upper outer quadrant
CPT/HCPCS: 76642

== ENCOUNTER 2024-08-15 13:26 | Outpatient (CLI) | payer OTHER, SELFPAY ==
--- NOTE | ~2024-08-15 | DEXA_ITS ---
Bone Density Report Name: VERNON DELACRUZ Age: 63 Sex: Female Ethnicity: White Date of : 1960 Indication: postmenopausal; screening for osteoporosis; prior fracture; Referring Provider: STEVEN WILKINS Study: Bone densitometry was performed. Exam Date: August 15, 2024 Accession number: [id number] Bone Density: Region BMD T-score Z-score Classification AP Spine(L2, L3, L4) 0.914 -1.5 0.2 Osteopenia Femoral Neck (Left) 0.738 -1.0 0.4 Normal Total Hip (Left) 0.901 -0.3 0.8 Normal Femoral Neck (Right) 0.519 -3.0 -1.5 Osteoporosis Total Hip (Right) 1.222 2.3 3.4 Normal Total Hip Mean 1.062 1.0 2.1 Normal World Health Organization criteria for BMD impression classify patients as: Normal (T-score at or above -1.0), Osteopenia (T-score between -1.0 and -2.5), or Osteoporosis (T-score at or below -2.5). 10-year Fracture Risk: FRAX not reported because: Some T-score for Spine Total or Hip Total or Femoral Neck at or below -2.5 Prior hip or vertebral fracture Previous Exams: Region Exam Age BMD T-score BMD Change BMD Change Date g/cm2 vs Baseline vs Previous Total Hip(Left) 08/15/2024 63 0.901 -0.3 -0.157 (-14.8% -0.157 (-14.8% 10/25/2019 58 1.058 1.0 Total Hip(Right) 08/15/2024 63 1.222 2.3 0.091 (8.0%)# 0.091 (8.0%)# 10/25/2019 58 1.132 1.6 *Denotes significance at 95% confidence level, LSC for Total Hip = 0.027 g/cm2 # Denotes dissimilar scan types or analysis methods Clinical Information Provided by Patient: Have had a previous hip or vertebral fracture Has had a low trauma fracture Has used the following medications: HRT (i.e. estrogen/hormone therapy), Vitamin D Patient maximum height was 60 Menopause Age: 50 Onset of menses at age 12 Number of children 1 Impression: The patient has established osteoporosis, based on the Right Femoral Neck T-score and the existence of a prior fracture. The patient has risk factors, including: previous fracture. The BMD for the Total Hip(Left) decreased, changing by -14.8% since the last DXA exam. Discussion: HIGH RISK OF FRACTURE. BONE DENSITY IS UNDESIRABLY LOW AT ONE OR MORE SKELETAL SITES, CONSISTENT WITH POSTMENOPAUSAL OSTEOPOROSIS. This patient's lowest T-score, in a patient who has previously fractured, meets the World Health Organization's (WHO) criteria for severe osteoporosis. In untreated patients, the risk of osteoporotic fracture increases approximately two-fold for each 1.0 SD decrease in T-score. Low bone density is not the only risk factor for fracture; also consider factors such as patient's age, frailty or poor health, risk of falling, risk of injury, previous osteoporotic fracture, family history of osteoporosis, cigarette smoking, low body weight, etc. Not everyone with low bone mineral density has osteoporosis; osteomalacia and other metabolic bone disorders should also be considered. Patients who have osteoporosis should be evaluated for specific diseases and conditions (secondary causes) that may cause or contribute to bone loss. The [place] Association of Clinical Endocrinologists (AACE) and National Osteoporosis Foundation (NOF) recommend pharmacologic intervention for all postmenopausal women with a previous hip or vertebral fracture and a T-score in this range. The patient should follow a healthful lifestyle (good nutrition with adequate calcium and vitamin D, and appropriate weight-bearing exercise). Follow-Up: Consider a repeat BMD and Vertebral Fracture Assessment (VFA) exam in 2 years or sooner if medically necessary, to reassess this patient's status. Reported by: JERROD on 08/15/2024 1:59:00 PM. Reviewed, dictated and finalized at location A.
--- OUTSIDE RECORDS SUMMARY | 2024-08-15 13:29 | XMS_ITS | Continuity of Care Document ---
Author Organization [facility] Address [address] [place] [address] [place] [address] Phone Care Team Providers Care Deputy Coroner Name Role Phone Jorge Au DO Unavailable Unavailable Advance Directives Directive Yes / No Effective Date File Name No Information Encounters Encounter Description Practice Location Reason(s) For Visit Diagnoses Date Provider Providers Copied on Encounter [facility], [address] [place], [place], [id number], [place] tel:[phone] [facility] No Information Angely Fontaine. [address] [facility], [place], [address], [place]. tel:[phone] Family History Family Member Type Diagnosis Age At Onset No Information Payers Payer name Insurance type Covered republican ID Authoriza tion(s) No Information Social History Type Description Quantity Date Captured Comments Sex Female Smoking Status No Information Chief Complaint And Reason For Visit No Information Reason For Referral Reason For Referral No Information History Of Present Illness Encounter Date Complaint History Of Prese nt Illness No Information Functional Status Date Functional Assessmen t No Information Instructions Date Instruction Additional Infor mation No Information Assessments Type Assessment Date No Information Patient Care Teams Name Effective Dates (start - stop) Status Members No Information
--- OUTSIDE RECORDS SUMMARY | 2024-08-15 13:29 | XMS_ITS | Referral Summary ---
Author Organization [facility] Address [address] [place] [address] Care Team Providers Care Garment Steamer Name Role Phone Dane Spears MD Primary Care Provider [phone] Markus Eden MD Unavailable [phone] Allergies Active Allergy Reactions Criticality Noted Date Comments Aspirin Hives,Shortness of breath High Atorvastatin Unknown 10/14/2019 Erythromycin Base Vomiting Low 10/14/2019 Tzwio-0-Orr-Epa-Fish Oil-Coq10 Dizziness,Headache,Other (See comments) Low 09/07/2021 Penicillins Hives,Shortness of breath High Rosuvastatin Dizziness,Headache Low 05/30/2021 Tetracycline Medications acetaminophen (TYLENOL) 500 mg tablet Take 500 mg by mouth every 6 (six) hours as needed for pain Active blood glucose diagnostic (OneTouch Ultra Test) stripIndication s:Type 2 diabetes mellitus without complication, without long-term current use of insulin (HCC) OneTouch Ultra Test strips test once a day Active valsartan-hydro CHLOROthiazide (Diovan HCT) 80-12.5 mg per tabletIndicatio ns:Type 2 diabetes mellitus without complication, without long-term current use of insulin (HCC) Take 1 tablet by mouth daily 90 tablet 3 08/16/2021 Active Active Problems Problem Noted Date Diagnosed Date Morbid (severe) obesity due to excess calories 0 08/02/2021 Assessment & Plan (08/02/2021 2:36 PM CDT): BMI Follow-up includes: nutrition counseling, exercise counseling and education provided. 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 Statin intolerance 06/15/2021 Bilateral carotid bruits 06/15/2021 Assessment & Plan (06/15/2021 1:44 PM CDT): Noted possible carotid bruits (potential narrowing of carotid arteries seen in uncontrolled atherosclerosis), also faint heart murmur. I will want to get a carotid Doppler to rule out carotid stenosis 1st. Low back pain, non-specific 11/04/2019 Type 2 diabetes mellitus without complication YOLANDA on CPAP 10/14/2019 Shoulder joint pain 10/14/2019 Reactive hypoglycemia 10/14/2019 Obesity 10/14/2019 Hypoglycemia 10/14/2019 Hyperlipidemia 10/14/2019 Assessment & Plan (06/15/2021 1:42 PM CDT): Advised to start Zetia 10 mg daily prescription as given by her previous PCP I am cautiously optimistic that she will tolerate Zetia Continue dietary efforts, cutting back on fatty foods and fried foods. Cutting back on carbs is also a good idea as currently being practiced. Essential hypertension 10/14/2019 Assessment & Plan (06/15/2021 1:42 PM CDT): Blood pressure is borderline Handout for dash diet given, continuing Diovan HCT at current dosage for now Advising to monitor blood pressure at home periodically as well Follow-up in 1 month Anxiety 10/14/2019 Vitamin D deficiency 12/04/2018 Prediabetes 12/04/2018 Well adult health check 01/05/2017 Hypertension Mixed hyperlipidemia Type 2 diabetes mellitus Immunizations Immunization Administration Dates Next Due Influenza, Quadrivalent, Spl it, Intramuscular 12/12/2018 Influenza, Quadrivalent, Spl it, Preservative Free, Intramuscular 12/28/2019,12/12/2018,01/03/2018 Influenza, Unspecified 03/05/2021(Deferr ed: Patient Refused),03/05/2021(Deferred: Patient Refused),01/04/2018,03/01/2017 Social History Tobacco Use Types Packs/Day Years Used Date Smoking Tobacco: Never Smokeless Tobacco: Never Tobacco Cessation:Counseling Given: No Alcohol Use Standard Drinks/Week Comments No 0 (1 standard drink = 0.6 oz pur e alcohol) AUDIT-C Answer Date Recorded Q1: How often do you have a drink containing alc ohol? Never 06/15/2021 Average Number of Drinks Not on file 022 Q3: How often do you have si x or more drinks on one occasion? 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 Not on file Not on file Last Filed Vital Signs Vital Sign Reading Time Taken Comments Blood Pressure 141/81 10/02/2021 3:18 PM CDT Pulse 65 10/02/2021 3:18 PM CDT Temperature 37.1 C (98.8 F) 10/02/2021 3:18 PM CDT Respiratory Rate 16 10/02/2021 3:18 PM CDT Oxygen Saturation 100% 10/02/2021 3:18 PM CDT Inhaled Oxygen Concentration - - Weight 89.4 kg (197 lb) 10/02/2021 3:18 PM CDT Height 152.4 cm (5') 10/02/2021 3:18 PM CDT Body Mass Index 38.47 10/02/2021 3:18 PM CDT Plan of Treatment Not on file Medical Devices Implanted Type Area Public Housing Interviewer Device Identifier Shelf Expiration Date Model / Serial / Lot Kit Fracture Stabil[employer] Str[employer] - [id number] Implanted:Qty: 1 on 10/31/2019 at [facility] [employer] 06/02/2020 [id number] / / [id number] Procedures Procedure Name Priority Date/Time Associated Diagnosis Comments HEPATITIS C ANTIBODY Routine 09/10/2021 HEMOGLOBIN A1C Routine 09/10/2021 ALBUMIN CREATININE RATIO, URINE Routine 09/10/2021 MAMMOGRAPHY Routine 06/11/2021 DIABETES EYE EXAM Routine 02/05/2021 from Last 3 Months or Most Recently Relevant to Health Maintenance Results * Hepatitis C antibody (09/10/2021) SCRIBED HCV ab NON REACTIVE [facility] Blood specimen (specimen) 09/10/2021 Historical Provider MD LAB MICROBIOLOGY - GENERA L ORDERABLES Final Result Performing Organization Address [facility] Co de Phone Number [facility] * (ABNORMAL) Albumin Creatinine Ratio, Urine (09/10/2021) SCRIBED Creatinine, Urine 101 20 - 275 [facility] SCRIBED Microalbumin 1.8(A) 0 - 0 [facility] SCRIBED Microalb/Creat Ratio 18 0 - <30 [facility] Urine 09/10/2021 Result [facility] Provider MD LAB URINE ORDERABLES Wendy l Result Performing Organization Address [facility] Co de Phone Number [facility] * Hemoglobin A1c (09/10/2021) SCRIBED Hemoglobin A1c 5.7 0 - <5.7 [facility] Blood specimen (specimen) 09/10/2021 [facility] Provider MD LAB BLOOD ORDERABLES Wendy l Result [facility] * HM MAMMOGRAPHY (06/11/2021) Mammography Normal Historical Provider MD HEALTH MAINTENANCE Final Result * DIABETES EYE EXAM (02/05/2021) SCRIBED DIABETIC DILATED EYE EXAM Normal Comment:No diabetic retinopa thy us Historical Provider MD HEALTH MAINTENANCE Final Result from Last 3 Months or Most Recently Relevant to Health Maintenance [id number] Member Subscriber Plan / Payer ( fective 2011-Present) Name:Maxine Delacruz Relation to Subscriber:Spouse Name:BRAYAN DELACRUZ Date of :1961 (Home) Address: [address] [place] [address] Payer ID:[id number] (NAIC) Type:[employer] HMO/PPO Address: [address] [place] [address] Advance Directives For more information, please contact: [phone] * Full Code (Latest Code Status on File) Date Activated Date Inactivated Comments 10/31/2019 10:20 AM 10/31/2019 2:33 PM Care Teams Garment Steamer Relationship Specialty Start Date End Date Dane Spears MD [address] [place] [address] PCP - General Family Medicine 06/14/21 Markus Eden MD [address] [facility] [address] [place] [address] Referring Physician Obstetrics and Gynecology 08/02/21
--- OUTSIDE RECORDS SUMMARY | 2024-08-15 13:29 | XMS_ITS | Clinical Summary ---
Author Organization [facility] Address [address] [place] [address] Care Team Providers Care Filemaker Developer Name Role Phone Dane Spears MD Primary Care Provider [phone] Markus Eden MD Unavailable [phone] Allergies Active Allergy Reactions Criticality Noted Date Comments Aspirin Hives,Shortness of breath High Atorvastatin Unknown 10/14/2019 Erythromycin Base Vomiting Low 10/14/2019 Kyqlv-2-Mvo-Epa-Fish Oil-Coq10 Dizziness,Headache,Other (See comments) Low 09/07/2021 Penicillins [...] Unspecified 03/05/2021(Deferr ed: Patient Refused),03/05/2021(Deferred: Patient Refused),01/04/2018,03/01/2017 Surgical History Surgery Date Site/Laterality Comments SECTION 03/05/1991 - 03/04/1992 DILATION AND CURETTAGE OF UTERUS 03/05/1979 - 03/04/1980 KYPHOPLASTY LUMBAR 10/31/2019 N/A SECTION 1991 FRACTURE SURGERY broken L3 from fall 2019 SPINE SURGERY fx L3 from fall 2019 TUBAL LIGATION 1991 Medical History Medical History Date Comments Anxiety Type 2 diabetes mellitus (HCC) Hypertension Sinusitis Statin intolerance 06/15/2021 Mixed hyperlipidemia Family history of patent foramen ovale closed by adulthood 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 Arthritis Family History Medical History Relation Name Comments Allergy (severe) Brother 1 Joe Amrit Asthma Brother 1 Joe Amrit Hypertension Brother 1 Joe Amrit No Known Problems Brother 2 No Known Problems Brother 3 No Known Problems Brother 4 COPD Father Brayan Marcus () Cancer Father Brayan Marcus () Diabetes Father Brayan Marcus () Diabetes mellitus; Heart attack Father Brayan Marcus () Heart disease Father Brayan Marcus () Hypertension Father Brayan Marcus () Hypertension; Stroke Father [place] () Stroke; Early Maternal Grandfather Aayush Mengradha n () Heart attack Maternal Grandfather Aayush Velasquez n () Heart disease Maternal Grandfather Aayush Mengradha n () Hypertension Maternal Grandfather Aayush Velasquez n () Heart disease Maternal Grandmother Ariana Ackerman Hypertension Maternal Grandmother Ariana Ackerman Obesity Maternal Grandmother Ariana Ackerman Arthritis Mother Gi Marcus Hearing loss Mother Gi Marcus Hyperlipidemia Mother Gi Marcus Hypertension Mother Gi Marcus Hypertension; Uterine cancer Mother Gi Marcus Heart disease Mother's Sister 1 Nubia Haney Heart disease Mother's Sister 2 Savanah Grant Renauds Disease Miscarriages / Stillbirths Mother's Sister 3 Mandymariana Quan es Early Paternal Grandfather Early Paternal Grandmother had 22 children; all had sometime of kidney disease or diabetes Relation Name Status Comments Brother 1 Joe Amrit Alive Brother 2 Alive Brother 3 Alive Brother 4 Alive Father Brayan Marcus () (Age 72) Maternal Grandfather Aayushuriel Mengen () Maternal Grandmother Ariana Ackerman Mother Gi Marcus Alive Mother's Sister 1 Nubia Haney Mother's Sister 2 Savanah Grant Renauds Disease Mother's Sister 3 Mandy Roblero Paternal Grandfather Paternal Grandmother Social History Tobacco Use Types Packs/Day Years [...] on file Legal Sex 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 Gender Identity Not on file Sexual Orientation Straight 10/29/2019 6: 30 AM CDT 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 file Not on file Not on file Obstetrics History Last Filed Vital Signs Vital Sign Reading [...] 10/02/2021 3:18 PM CDT Plan of Treatment Health Maintenance Due Date Last Done Comments Cervical Cancer Screening 1960 Colon Cancer Screening-Colonoscopy 1960 eGFR 1960 Lipid Panel 1960 DTaP/Tdap/Td Vaccine (1 - Tdap) 11/11/1971 Hepatitis B Screening 1978 Regular Well Visit/Exam 18-64 1978 Pneumococcal vaccine <65 (1 of 2 - PCV) 11/11/1979 Zoster Vaccine (1 of 2) 2010 Dilated Eye Exam 02/05/2022 02/05/2021 Hemoglobin A1C 03/13/2022 09/10/2021, 09/10/2021 Breast Cancer Screening-Mammogram 06/11/2022 022 Depression Screening 06/15/2022 06/15/2021 Foot Exam 08/02/2022 08/02/2021 Albumin Creatinine Ratio, Urine 09/10/2022 Influenza Vaccine (Season Ended) 2024 12/28/2019, 12/12/2018, 12/12/2018, Additional history exists Hepatitis C Screening Completed 09/10/2021 Medical Devices Implanted Type Area Package Dye Stand Loader Device Identifier Shelf Expiration Date Model / Serial / Lot Kit Fracture Stabilit Mx Strl - [id number] Implanted:Qty: 1 on 10/31/2019 at [facility] [employer] 06/02/2020 [id number] / / [id number] Procedures Procedure Name Priority Date/Time Associated Diagnosis Comments HEPATITIS C ANTIBODY Routine 09/10/2021 HEMOGLOBIN A1C Routine 09/10/2021 ALBUMIN CREATININE RATIO, URINE Routine 09/10/2021 MAMMOGRAPHY Routine 06/11/2021 DIABETES EYE EXAM Routine 02/05/2021 from Last 3 Months or Most Recently Relevant to Health Maintenance Results * Hepatitis C antibody (09/10/2021) SCRIBED HCV ab NON REACTIVE [facility] Blood specimen (specimen) 09/10/2021 us Historical Provider LAB MICROBIOLOGY - GENERA L ORDERABLES Final Result [facility] * (ABNORMAL) Albumin Creatinine Ratio, Urine (09/10/2021) SCRIBED Creatinine, Urine 101 20 - 275 [facility] SCRIBED Microalbumin 1.8(A) 0 - 0 [facility] SCRIBED Microalb/Creat Ratio 18 0 - <30 [facility] Urine 09/10/2021 Historical Provider MD LAB URINE ORDERABLES Wendy l Result [facility] * Hemoglobin A1c (09/10/2021) SCRIBED Hemoglobin A1c 5.7 0 - <5.7 [facility] Blood specimen (specimen) 09/10/2021 Result [facility] Historical Provider LAB BLOOD ORDERABLES Wendy l Result [facility] * HM MAMMOGRAPHY (06/11/2021) Mammography Normal Historical Provider HEALTH MAINTENANCE Final Result * DIABETES EYE EXAM (02/05/2021) SCRIBED DIABETIC DILATED EYE EXAM Normal Comment:No diabetic retinopa thy Historical Provider HEALTH MAINTENANCE Final Result from Last 3 Months or Most Recently Relevant to Health Maintenance [id number] [facility] Address: [id number] [place] [id number] Advance Directives For more information, please contact: [phone] * Full Code (Latest Code Status on File) Date Activated Date Inactivated Comments 10/31/2019 10:20 AM 10/31/2019 2:33 PM Care Teams Filemaker Developer Relationship Specialty Start Date End Date Dane pSears MD [address] [place] [address] PCP - General Family Medicine 06/14/21 Markus Eden MD [address] [place] [address] Referring Physician Obstetrics and Gynecology 08/02/21
== END 2024-08-15 13:27 | disposition home or self-care (01) ==
LOC: ANHIMG 13:27
PROVIDERS: PCP Emergency Medicine; Visit Provider Emergency Medicine
DX: Z78.0 Asymptomatic menopausal state (principal); M85.88 Other specified disorders of bone density and structure, other site; M81.0 Age-related osteoporosis without current pathological fracture
CPT/HCPCS: 77080

== ENCOUNTER 2024-08-16 08:04 | Outpatient (CLI) | payer OTHER, SELFPAY ==
--- NOTE | ~2024-08-16 | MM_ITS ---
EXAMINATION: MM screening john BI w jonathan HISTORY: Screening TECHNIQUE: Craniocaudal and mediolateral oblique 3-D tomosynthesis images were obtained and synthetic 2-D images were generated. CAD analysis was submitted and interpreted. COMPARISON: Comparison to multiple prior studies sequentially, with oldest reviewed study dated 08/18. BREAST PARENCHYMAL COMPOSITION: Not dense: There are scattered areas of fibroglandular density. FINDINGS: There is a low-density mass superior aspect of the right breast on MLO view, posterior thir d. The mass is not significantly changed in size, although there are developing internal calcificatio ns. There is no mammographic evidence for malignancy in the left breast. IMPRESSION: 1. Low-density mass superior of the right breast on MLO view, posterior third, with developing planning intern al calcifications. 2. Additional mammographic views and possible breast ultrasound are recommended. BI-RADS Category 0: Incomplete: Needs additional imaging evaluation. Reviewed, dictated and finalized at location A. IMPRESSION: 1. Low-density mass superior of the right breast on MLO view, posterior third, with developing internal calcifications. 2. Additional mammographic views and possible breast ultrasound are recommended . BI-RADS Category 0: Incomplete: Needs additional imaging evaluation.
== END 2024-08-16 08:05 | disposition home or self-care (01) ==
LOC: MICIMG 08:25
PROVIDERS: PCP Emergency Medicine; Visit Provider Obstetrics & Gynecology
DX: Z12.31 Encounter for screening mammogram for malignant neoplasm of breast (principal); R92.8 Other abnormal and inconclusive findings on diagnostic imaging of breast
CPT/HCPCS: 77063; 77067

== ENCOUNTER 2024-09-01 10:25 | Emergency (ER) | payer OTHER, SELFPAY ==
--- NOTE | 2024-09-01 10:28 | ED.URI ---
HPI - URI/Sore Throat General Chief Complaint: Upper Respiratory Infection Stated Complaint: Sinus Time Seen by Provider: 09/01/24 10:27 Source: patient Mode of arrival: ambulatory Limitations: no limitations History of Present Illness HPI Narrative: Maxine is a 63-year-old female patient presenting to the clinic today with complaints of sinus congestion and cough x3 days. She reports cough is productive with some green phlegm. Denies any chest pain or shortness of breath. Does also report a sore throat. No fevers, chills, body aches. Related Data Home Medications ?Medication ?Instructions ?Recorded ?Confirmed ?Last Taken ?Type cholecalciferol (vitamin D3) 50 50 mcg PO DAILY 03/18/24 08/11/24 Unknown History mcg (2,000 unit) capsule Allergies Allergy/AdvReac Type Severity Reaction Status Date / Time aspirin Allergy Severe Anaphylaxis Verified 09/01/24 10:58 atorvastatin Allergy Intermediate drops Verified 09/01/24 10:58 blood sugars erythromycin base Allergy Mild Vomiting Verified 09/01/24 10:58 Penicillins Allergy Mild Itching Verified 09/01/24 10:58 tetracycline Allergy Mild Itching Verified 09/01/24 10:58 statins AdvReac Intermediate Fatigued Uncoded 08/11/24 13:56 Review of Systems Review of Systems: Pertinent positives per HPI. Patient denies any fever, chills, rash, headache, visual changes, dizziness, shortness of breath, chest pain, palpitations, nausea, vomiting, diarrhea, constipation, abdominal pain, or any urinary issues. PMFSH Past Medical History Medical History Left breast lump Chronic sinusitis Abscess Screening mammogram, encounter for High cholesterol Spinal stenosis Screening mammogram, encounter for History of endometrial biopsy 03/11/02 EMB--proliferative phase, anovulatory cycle Sleep apnea Depression Anxiety Panic attacks Abnormal Pap smear of cervix 04/18/2005 ascus neg hpv Cerumen impaction Routine medical exam Surgical History Surgical History History of back surgery History of hysteroscopy 1981 hscope d&c--abnormal uterine bleeding History of tubal ligation 1991 H/O section 1991 Family History Family History Father , passed from massive heart attack Hypertension Diabetes mellitus Mother Hypertension Gout Age related osteoporosis GERD (gastroesophageal reflux disease) Diverticulitis Anemia Osteoporosis Sibling Asthma Brother - age 55 Allergies Sibling Hypertension Grandparent Heart disease Diabetes mellitus Hypertension Social History Social History Smoking status: Never smoker Second hand tobacco smoke exposure: No Alcohol intake: never Substance use: never Substance use type: does not use Do You Feel Safe in your Home?: Yes Lack of Transportation: No Lack of Food: Never True Current Housing: Decline to Answer Concerned About Future Housing: Decline to Answer Difficulty Paying Gas/Electric Bills: Decline to Answer Difficulty Paying for Meds: Decline to Answer Currently Unemployed: Decline to Answer Education: Decline to Answer Difficulty w/ Childcare or Family Care: Decline to Answer Living arrangements: other Additional living arrangements comments: spouse 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 There is no relevant family history pertinent to the patient complaint. Exam Narrative: General: Well-developed, morbidly obese, in no apparent distress Head: Normocephalic, atraumatic Eyes: Pupils equally round and reactive to light bilaterally, EOM intact, sclera and conjunctive clear, no discharge, lids normal Ears: TMs intact and congested, ear canals clear, no drainage, grossly hearing normal. Nose: Nares patent, clear nasal discharge, no inflammation, no sinus tenderness. Mouth: Oral pharynx red without lesions or masses, good dentition, MMM. Postnasal drip Neck: Supple, trachea midline, no enlargement of anterior or posterior cervical nodes, no thyroid masses or goiter palpable. Cardio: Regular rate and rhythm, s1 and s2 normal, no murmur appreciated. Resp: Clear to auscultation bilaterally, no rhonchi, rales, wheezing or rubs Course Course Emergency Course: Portions of this record may have been created with voice recognition software. Level of Care: Express Care Visit Vital Signs Vital signs: Vital Signs Temperature 36.9 C 09/01/24 10:36 Pulse Rate 94 09/01/24 10:36 Respiratory Rate 16 09/01/24 10:36 Blood Pressure 152/65 H 09/01/24 10:36 Pulse Oximetry 97 09/01/24 10:36 Oxygen Delivery Room Air 09/01/24 10:36 Temperature 36.9 C 09/01/24 10:36 Pulse Rate 94 09/01/24 10:36 Respiratory Rate 16 09/01/24 10:36 Blood Pressure 152/65 H 09/01/24 10:36 Pulse Oximetry 97 09/01/24 10:36 Oxygen Delivery Room Air 09/01/24 10:36 Vital signs reviewed MDM - URI/Sore Throat MDM Narrative Medical decision making narrative: At the time of visit patient is resting comfortably on the exam table. Patient appears to be nontoxic. Labs: Strep, COVID, and influenza testing was negative in the clinic today. We will send strep for culture. Plan: I suspect patient has URI with cough congestion/pharyngitis. No signs bacterial infection in the clinic today Supportive measures were discussed with the patient and they voiced understanding discharge instructions and agrees to treatment plan. Return precautions reviewed Differential Diagnosis Differential diagnosis: Likely upper respiratory infection, otitis media, sinusitis, viral infection, bronchitis, influenza, pharyngitis and other (COVID) Lab Data Labs: Lab Results 09/01/24 Range/Units 11:02 POC Grp A Strep Screen Negative (Negative) Discharge Plan Discharge Clinical Impression: Upper respiratory infection with cough and congestion Pharyngitis Qualifiers: Pharyngitis/tonsillitis etiology: unspecified etiology Qualified Code(s): J02.9 - Acute pharyngitis, unspecified Patient Disposition: Home Condition: Stable Instructions: Antibiotic Form, Pharyngitis (ED), Cold Symptoms (ED) Additional Instructions: COVID, influenza, and strep test were all negative in the clinic today. No sign of bacterial infection in the clinic today. Increase fluids and stay well hydrated Tylenol/motrin for pain/fever Flonase and OTC antihistamines as directed Vicks vapor rub to open sinuses Sinus rinses for congestion Cepacol spray, cough drops, throat lozenges, warm tea with honey/lemon, gargle salt water to soothe throat BRAT diet for diarrhea Clear liquids x 24 hours then advance as tolerated for nausea/vomiting Go to the ED if you develop a worsening in your condition- high fever not controlled by Tylenol or Motrin, dehydration, weakness, lethargy, shortness of breath, or chest pain. Follow up with your PCP in 3-5 days if symptoms persist. Patient Language: Belarusian Prescriptions: No Action cholecalciferol (vitamin D3) 50 mcg (2,000 unit) capsule 50 mcg PO DAILY (DME) lancets [OneTouch Delica Plus Lancet] 30 gauge misc See Rx Instructions .ROUTE .MEDSUPPLY Qty: 100 3RF Rx Instructions: check blood sugar once daily (DME) OneTouch Verio test strips Strip See Rx Instructions .ROUTE .MEDSUPPLY Qty: 100 3RF Rx Instructions: check blood sugar once daily valsartan-hydrochlorothiazide 80-12.5 mg tablet See Rx Instructions .ROUTE .COMPLEX Qty: 90 2RF Dose Instruction: TAKE 1 TABLET BY MOUTH EVERY DAY Rx Instructions: TAKE 1 TABLET BY MOUTH EVERY DAY Follow-up/Referrals: Noel Stark MD [Primary Care Provider] - Time of Disposition: 11:14 Quality NIHSS Nursing Documentation ED NIHSS nursing documentation: reviewed/agree
[2024-09-01 10:36] VITALS: BP 152/65; PULSE 94; RESP 16; TEMP 36.9; O2SAT 97
[2024-09-01 11:11] LABS: EDSTREPNEGPOS1 Negative (Negative)
[2024-09-01 11:14] LABS: EDCOVIDSCREEN Negative (Negative); EDINFLUASCREEN Negative (Negative); EDINFLUBSCREEN Negative (Negative)
--- NOTE | 2024-09-03 12:37 | ED.URI ---
HPI - URI/Sore Throat General Chief Complaint: Upper Respiratory Infection Stated Complaint: Sinus Time Seen by Provider: 09/01/24 10:27 Source: patient Mode of arrival: ambulatory Limitations: no limitations History of Present Illness HPI Narrative: Maxine is a 63-year-old female patient presenting to the clinic today with complaints of MD elicited complaint: sore throat and nasal congestion Related Data Home Medications ?Medication ?Instructions ?Recorded ?Confirmed ?Last Taken ?Type cholecalciferol (vitamin D3) 50 50 mcg PO DAILY 03/18/24 08/11/24 Unknown History mcg (2,000 unit) capsule Allergies Allergy/AdvReac Type Severity Reaction Status Date / Time aspirin Allergy Severe Anaphylaxis Verified 09/03/24 12:32 atorvastatin Allergy Intermediate drops Verified 09/03/24 12:32 blood sugars erythromycin base Allergy Mild Vomiting Verified 09/03/24 12:32 Penicillins Allergy Mild Itching Verified 09/03/24 12:32 tetracycline Allergy Mild Itching Verified 09/03/24 12:32 statins AdvReac Intermediate Fatigued Uncoded 09/03/24 12:32 Review of Systems Review of Systems: Pertinent positives per HPI. Patient denies any fever, chills, rash, headache, visual changes, dizziness, cough, shortness of breath, chest pain, palpitations, nausea, vomiting, diarrhea, constipation, abdominal pain, or any urinary issues. [facility] Past Medical History Medical History Left breast lump Chronic sinusitis Abscess Screening mammogram, encounter for High cholesterol Spinal stenosis Screening mammogram, encounter for History of endometrial biopsy 03/11/02 EMB--proliferative phase, anovulatory cycle Sleep apnea Depression Anxiety Panic attacks Abnormal Pap smear of cervix 04/18/2005 ascus neg hpv Cerumen impaction Routine medical exam Surgical History Surgical History History of back surgery History of hysteroscopy 1981 [facility] d&c--abnormal uterine bleeding History of tubal ligation 1991 H/O section 1991 Family History Family History Father , passed from massive heart attack Hypertension Diabetes mellitus Mother Hypertension Gout Age related osteoporosis GERD (gastroesophageal reflux disease) Diverticulitis Anemia Osteoporosis Sibling Asthma Brother - age 55 Allergies Sibling Hypertension Grandparent Heart disease Diabetes mellitus Hypertension Social History Social History Smoking status: Never smoker Second hand tobacco smoke exposure: No Alcohol intake: never Substance use: never Substance use type: does not use Do You Feel Safe in your Home?: Yes Lack of Transportation: No Lack of Food: Never True Current Housing: Decline to Answer Concerned About Future Housing: Decline to Answer Difficulty Paying Gas/Electric Bills: Decline to Answer Difficulty Paying for Meds: Decline to Answer Currently Unemployed: Decline to Answer Education: Decline to Answer Difficulty w/ Childcare or Family Care: Decline to Answer Living arrangements: other Additional living arrangements comments: spouse 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 There is no relevant family history pertinent to the patient complaint. Exam Narrative: General: Well-developed, well nourished, in no apparent distress Head: Normocephalic, atraumatic Eyes: Pupils equally round and reactive to light bilaterally, EOM intact, sclera and conjunctive clear, no discharge, lids normal Ears: TMs intact and clear, ear canals clear, no drainage, grossly hearing normal. Nose: Nares patent, no discharge, no inflammation, no sinus tenderness. Mouth: Oral pharynx without lesions or masses, good dentition, MMM. Neck: Supple, trachea midline, no enlargement of anterior or posterior cervical nodes, no thyroid masses or goiter palpable. Cardio: Regular rate and rhythm, s1 and s2 normal, no murmur appreciated. Resp: Clear to auscultation bilaterally, no rhonchi, rales, wheezing or rubs Course Course Emergency Course: Portions of this record may have been created with voice recognition software. Level of Care: Express Care Visit Vital Signs Vital signs: Vital Signs Temperature 36.9 C 09/01/24 10:36 Pulse Rate 94 09/01/24 10:36 Respiratory Rate 16 09/01/24 10:36 Blood Pressure 152/65 H 09/01/24 10:36 Pulse Oximetry 97 09/01/24 10:36 Oxygen Delivery Room Air 09/01/24 10:36 Temperature 36.9 C 09/01/24 10:36 Pulse Rate 94 09/01/24 10:36 Respiratory Rate 16 09/01/24 10:36 Blood Pressure 152/65 H 09/01/24 10:36 Pulse Oximetry 97 09/01/24 10:36 Oxygen Delivery Room Air 09/01/24 10:36 Vital signs reviewed MDM - URI/Sore Throat Differential Diagnosis Differential diagnosis: Likely sinusitis, viral infection, influenza and pharyngitis Lab Data Labs: Lab Results 09/01/24 09/01/24 Range/Units 11:02 11:10 POC Influenza A Ag Negative (Negative) POC Influenza B Ag Negative (Negative) POC SARS CoV-2 Ag Negative (Negative) POC Grp A Strep Screen Negative (Negative) Discharge Plan Discharge Clinical Impression: Upper respiratory infection with cough and congestion, Pharyngitis Patient Disposition: Home Condition: Stable Instructions: Antibiotic Form, Pharyngitis (ED), Cold Symptoms (ED) Additional Instructions: COVID, influenza, and strep test were all negative in the clinic today. No sign of bacterial infection in the clinic today. Increase fluids and stay well hydrated Tylenol/motrin for pain/fever Flonase and OTC antihistamines as directed Vicks vapor rub to open sinuses Sinus rinses for congestion Cepacol spray, cough drops, throat lozenges, warm tea with honey/lemon, gargle salt water to soothe throat BRAT diet for diarrhea Clear liquids x 24 hours then advance as tolerated for nausea/vomiting Go to the ED if you develop a worsening in your condition- high fever not controlled by Tylenol or Motrin, dehydration, weakness, lethargy, shortness of breath, or chest pain. Follow up with your PCP in 3-5 days if symptoms persist. Patient Language: Portuguese Prescriptions: No Action cholecalciferol (vitamin D3) 50 mcg (2,000 unit) capsule 50 mcg PO DAILY (DME) lancets [OneTouch Delica Plus Lancet] 30 gauge misc See Rx Instructions .ROUTE .MEDSUPPLY Qty: 100 3RF Rx Instructions: check blood sugar once daily (DME) OneTouch Verio test strips Strip See Rx Instructions .ROUTE .MEDSUPPLY Qty: 100 3RF Rx Instructions: check blood sugar once daily valsartan-hydrochlorothiazide 80-12.5 mg tablet See Rx Instructions .ROUTE .COMPLEX Qty: 90 2RF Dose Instruction: TAKE 1 TABLET BY MOUTH EVERY DAY Rx Instructions: TAKE 1 TABLET BY MOUTH EVERY DAY Follow-up/Referrals: Noel Stark MD [Primary Care Provider] - Time of Disposition: 11:14 Quality NIHSS Nursing Documentation ED NIHSS nursing documentation: reviewed/agree
--- NOTE | 2024-09-03 12:53 | ED_ITS ---
HPI - URI/Sore Throat General Chief Complaint: Upper Respiratory Infection Stated Complaint: Sinus Time Seen by Provider: 09/01/24 10:27 Source: patient Mode of arrival: ambulatory Limitations: no limitations History of Present Illness HPI Narrative: Maxine is a 63-year-old female patient presenting to the clinic today with complaints of a 6 day history productive cough with green phlegm, clear nasal drainage, sore throat, sinus congestion, and fever high as 102.5F. Has been taking Tylenol for the fever and that has been resolving the fever. Denies any shortness of breath or chest pain. States that she is coughing so hard that she is having some stress incontinence. Was seen by myself 2 days ago and had a COVID, flu, and strep test was completed and they were all negative. Strep culture came back today and was negative. Related Data Home Medications ?Medication ?Instructions ?Recorded ?Confirmed ?Last Taken ?Type cholecalciferol (vitamin D3) 50 50 mcg PO DAILY 03/18/24 08/11/24 Unknown History mcg (2,000 unit) capsule Allergies Allergy/AdvReac Type Severity Reaction Status Date / Time aspirin Allergy Severe Anaphylaxis Verified 09/03/24 12:32 atorvastatin Allergy Intermediate drops Verified 09/03/24 12:32 blood sugars erythromycin base Allergy Mild Vomiting Verified 09/03/24 12:32 Penicillins Allergy Mild Itching Verified 09/03/24 12:32 tetracycline Allergy Mild Itching Verified 09/03/24 12:32 statins AdvReac Intermediate Fatigued Uncoded 09/03/24 12:32 Review of Systems Review of Systems: Pertinent positives per HPI. Patient denies any rash, headache, visual changes, dizziness, shortness of breath, chest pain, palpitations, nausea, vomiting, diarrhea, constipation, abdominal pain, or any urinary issues. [facility] Past Medical History Medical History Left breast lump Chronic sinusitis Abscess Screening mammogram, encounter for High cholesterol Spinal stenosis Screening mammogram, encounter for History of endometrial biopsy 03/11/02 EMB--proliferative phase, anovulatory cycle Sleep apnea Depression Anxiety Panic attacks Abnormal Pap smear of cervix 04/18/2005 ascus neg hpv Cerumen impaction Routine medical exam Surgical History Surgical History History of back surgery History of hysteroscopy [place] [facility] [place]--abnormal uterine bleeding History of tubal ligation 1991 H/O section 1991 Family History Family History Father , passed from massive heart attack Hypertension Diabetes mellitus Mother Hypertension Gout Age related osteoporosis GERD (gastroesophageal reflux disease) Diverticulitis Anemia Osteoporosis Sibling Asthma Brother - age 55 Allergies Sibling Hypertension Grandparent Heart disease Diabetes mellitus Hypertension Social History Social History Smoking status: Never smoker Second hand tobacco smoke exposure: No Alcohol intake: never Substance use: never Substance use type: does not use Do You Feel Safe in your Home?: Yes Lack of Transportation: No Lack of Food: Never True Current Housing: Decline to Answer Concerned About Future Housing: Decline to Answer Difficulty Paying Gas/Electric Bills: Decline to Answer Difficulty Paying for Meds: Decline to Answer Currently Unemployed: Decline to Answer Education: Decline to Answer Difficulty w/ Childcare or Family Care: Decline to Answer Living arrangements: other Additional living arrangements comments: spouse 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 There is no relevant family history pertinent to the patient complaint. Exam Narrative: General: Well-developed, morbidly obese, in no apparent distress Head: Normocephalic, atraumatic Eyes: Pupils equally round and reactive to light bilaterally, EOM intact, sclera and conjunctive clear, no discharge, lids normal Ears: TMs intact and congested, ear canals clear, no drainage, grossly hearing normal. Nose: Nares patent, clear discharge, mild inflammation, no sinus tenderness. Mouth: Oral pharynx without lesions or masses, good dentition, MMM. Postnasal drip Neck: Supple, trachea midline, no enlargement of anterior or posterior cervical nodes, no thyroid masses or goiter palpable. Cardio: Regular rate and rhythm, s1 and s2 normal, no murmur appreciated. Resp: Lung sounds diminished in the bases, no rhonchi, rales, wheezing or rubs Course Course Emergency Course: Portions of this record may have been created with voice recognition software. Level of Care: Express Care Visit Vital Signs Vital signs: Vital Signs Temperature 36.9 C 09/01/24 10:36 Pulse Rate 94 09/01/24 10:36 Respiratory Rate 16 09/01/24 10:36 Blood Pressure 152/65 H 09/01/24 10:36 Pulse Oximetry 97 09/01/24 10:36 Oxygen Delivery Room Air 09/01/24 10:36 Temperature 36.9 C 09/01/24 10:36 Pulse Rate 94 09/01/24 10:36 Respiratory Rate 16 09/01/24 10:36 Blood Pressure 152/65 H 09/01/24 10:36 Pulse Oximetry 97 09/01/24 10:36 Oxygen Delivery Room Air 09/01/24 10:36 Vital signs reviewed MDM - URI/Sore Throat MDM Narrative Medical decision making narrative: At the time of visit patient is resting comfortably on the exam table. Patient appears to be nontoxic. Diagnostics: Chest x-ray was performed Plan: Supportive measures were discussed with the patient and they voiced understanding discharge instructions and agrees to treatment plan. Return precautions reviewed Differential Diagnosis Differential diagnosis: Likely upper respiratory infection, otitis media, sinusitis, viral infection, bronchitis, influenza, pharyngitis and other (COVID) Lab Data Labs: Lab Results 09/01/24 09/01/24 Range/Units 11:02 11:10 POC Influenza A Ag Negative (Negative) POC Influenza B Ag Negative (Negative) POC SARS CoV-2 Ag Negative (Negative) POC Grp A Strep Screen Negative (Negative) Discharge Plan Discharge Clinical Impression: Upper respiratory infection with cough and congestion, Pharyngitis Patient Disposition: Home Condition: Stable Instructions: Antibiotic Form, Pharyngitis (ED), Cold Symptoms (ED) Additional Instructions: COVID, influenza, and strep test were all negative in the clinic today. No sign of bacterial infection in the clinic today. Increase fluids and stay well hydrated Tylenol/motrin for pain/fever Flonase and OTC antihistamines as directed Vicks vapor rub to open sinuses Sinus rinses for congestion Cepacol spray, cough drops, throat lozenges, warm tea with honey/lemon, gargle salt water to soothe throat BRAT diet for diarrhea Clear liquids x 24 hours then advance as tolerated for nausea/vomiting Go to the ED if you develop a worsening in your condition- high fever not controlled by Tylenol or Motrin, dehydration, weakness, lethargy, shortness of breath, or chest pain. Follow up with your PCP in 3-5 days if symptoms persist. Patient Language: Luxembourgish Prescriptions: No Action cholecalciferol (vitamin D3) 50 mcg (2,000 unit) capsule 50 mcg PO DAILY (DME) lancets [OneTouch Delica Plus Lancet] 30 gauge misc See Rx Instructions .ROUTE .MEDSUPPLY Qty: 100 3RF Rx Instructions: check blood sugar once daily (DME) OneTouch Verio test strips Strip See Rx Instructions .ROUTE .MEDSUPPLY Qty: 100 3RF Rx Instructions: check blood sugar once daily valsartan-hydrochlorothiazide 80-12.5 mg tablet See Rx Instructions .ROUTE .COMPLEX Qty: 90 2RF Dose Instruction: TAKE 1 TABLET BY MOUTH EVERY DAY Rx Instructions: TAKE 1 TABLET BY MOUTH EVERY DAY Follow-up/Referrals: Noel Stark MD [Primary Care Provider] - Time of Disposition: 11:14 Quality NIHSS Nursing Documentation ED NIHSS nursing documentation: reviewed/agree
== END 2024-09-01 11:28 | disposition home or self-care (01) ==
PROVIDERS: Emergency Provider Nurse Practitioner Family; PCP Emergency Medicine
DX: J06.9 Acute upper respiratory infection, unspecified (principal); Z20.822 Contact with and (suspected) exposure to COVID-19
CPT/HCPCS: 87081; 87426; 87804; 87880; 99213; G0463

== ENCOUNTER 2024-09-03 12:30 | Emergency (ER) | payer OTHER, SELFPAY ==
--- NOTE | ~2024-09-03 | XR_ITS ---
CHEST RADIOGRAPH, PA AND LATERAL CLINICAL HISTORY: fever, productive cough . COMPARISON: None available TECHNIQUE: PA and lateral views of the chest. FINDINGS The cardiomediastinal silhouette is unremarkable. Elevation of the left hemidiaphragm with adjacent compressive atelectasis. The remainder the lungs are clear. IMPRESSION: No focal infiltrate or effusion. Elevation of the left hemidiaphragm with adjacent compressive atelectasis. Reviewed, dictated and finalized at location A.
[2024-09-03 12:40] VITALS: BP 149/67; PULSE 86; RESP 14; TEMP 36.5; O2SAT 98
--- NOTE | 2024-09-03 12:59 | ED.URI ---
HPI - URI/Sore Throat General Chief Complaint: Upper Respiratory Infection Stated Complaint: Fever/Sinus Time Seen by Provider: 09/03/24 12:45 Source: patient Mode of arrival: ambulatory Limitations: no limitations History of Present Illness HPI Narrative: Maxine is a 63 year old female patient presenting to the clinic today with c/o fever, productive cough-green phlegm, headache, sore throat, ear pain, and sinus congestion x 6 days. Highest temp was 102.5F. Has been taking tylenol for fever. Was seen 2 days ago and strep, Covid, and influenza testing was completed- All testing was negative at that time. Strep culture was negative today. She denies any sob or chest pain. States that she is coughing so hard it is causing her some stress incontinence. Related Data Home Medications ?Medication ?Instructions ?Recorded ?Confirmed ?Last Taken ?Type cholecalciferol (vitamin D3) 50 50 mcg PO DAILY 03/18/24 08/11/24 Unknown History mcg (2,000 unit) capsule Allergies Allergy/AdvReac Type Severity Reaction Status Date / Time aspirin Allergy Severe Anaphylaxis Verified 09/03/24 12:32 atorvastatin Allergy Intermediate drops Verified 09/03/24 12:32 blood sugars erythromycin base Allergy Mild Vomiting Verified 09/03/24 12:32 Penicillins Allergy Mild Itching Verified 09/03/24 12:32 tetracycline Allergy Mild Itching Verified 09/03/24 12:32 statins AdvReac Intermediate Fatigued Uncoded 09/03/24 12:32 Review of Systems Review of Systems: Pertinent positives per HPI. Patient denies any rash, visual changes, dizziness, shortness of breath, chest pain, palpitations, nausea, vomiting, diarrhea, constipation, abdominal pain, or any urinary issues. [facility] Past Medical History Medical History Left breast lump Chronic sinusitis Abscess Screening mammogram, encounter for High cholesterol Spinal stenosis Screening mammogram, encounter for History of endometrial biopsy 03/11/02 EMB--proliferative phase, anovulatory cycle Sleep apnea Depression Anxiety Panic attacks Abnormal Pap smear of cervix 04/18/2005 ascus neg hpv Cerumen impaction Routine medical exam Surgical History Surgical History History of back surgery [facility] History of tubal ligation 1991 H/O section 1991 Family History Family History Father , passed from massive heart attack Hypertension Diabetes mellitus Mother Hypertension Gout Age related osteoporosis GERD (gastroesophageal reflux disease) Diverticulitis Anemia Osteoporosis Sibling Asthma Brother - age 55 Allergies Sibling Hypertension Grandparent Heart disease Diabetes mellitus Hypertension Social History Social History Smoking status: Never smoker Second hand tobacco smoke exposure: No Alcohol intake: never Substance use: never Substance use type: does not use Do You Feel Safe in your Home?: Yes Lack of Transportation: No Lack of Food: Never True Current Housing: Decline to Answer Concerned About Future Housing: Decline to Answer Difficulty Paying Gas/Electric Bills: Decline to Answer Difficulty Paying for Meds: Decline to Answer Currently Unemployed: Decline to Answer Education: Decline to Answer Difficulty w/ Childcare or Family Care: Decline to Answer Living arrangements: other Additional living arrangements comments: spouse 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 There is no relevant family history pertinent to the patient complaint. Exam Narrative: General: Well-developed, morbidly obese, in no apparent distress Head: Normocephalic, atraumatic Eyes: Pupils equally round and reactive to light bilaterally, EOM intact, sclera and conjunctive clear, no discharge, lids normal Ears: TMs intact and congested, ear canals clear, no drainage, grossly hearing normal. Nose: Nares patent, clear nasal discharge, moderate inflammation, no sinus tenderness. Mouth: Oral pharynx without lesions or masses, good dentition, MMM. Postnasal drip Neck: Supple, trachea midline, no enlargement of anterior or posterior cervical nodes, no thyroid masses or goiter palpable. Cardio: Regular rate and rhythm, s1 and s2 normal, no murmur appreciated. Resp: Lung sounds diminished in the bases, no rhonchi, rales, wheezing or rubs Course Course Emergency Course: Portions of this record may have been created with voice recognition software. Level of Care: Express Care Visit Vital Signs Vital signs: Vital Signs Temperature 36.5 C 09/03/24 12:40 Pulse Rate 86 09/03/24 12:40 Respiratory Rate 14 09/03/24 12:40 Blood Pressure 149/67 H 09/03/24 12:40 Pulse Oximetry 98 09/03/24 12:40 Oxygen Delivery Room Air 09/03/24 12:40 Temperature 36.5 C 09/03/24 12:40 Pulse Rate 86 09/03/24 12:40 Respiratory Rate 14 09/03/24 12:40 Blood Pressure 149/67 H 09/03/24 12:40 Pulse Oximetry 98 09/03/24 12:40 Oxygen Delivery Room Air 09/03/24 12:40 Vital signs reviewed MDM - URI/Sore Throat MDM Narrative Medical decision making narrative: At the time of visit patient is resting comfortably on the exam table. Patient appears to be nontoxic. She is afebrile in the clinic today. Reporting productive cough with green phlegm and fevers. Strep, COVID, and influenza testing was negative 2 days ago. Strep culture came back negative today. Will order chest x-ray to rule out pneumonia Diagnostics: Chest x-ray shows some left hemidiaphragm elevation with compressive atelectasis. No sign of effusion or infiltrate. Plan: I suspect patient has sinusitis, purulent bronchitis, and atelectasis. Incentive spirometer was given to the patient with encouraging to use every 2-4 hours while awake. Prescription for cephalexin and albuterol inhaler was sent to the pharmacy. Supportive measures were discussed with the patient and they voiced understanding discharge instructions and agrees to treatment plan. Return precautions reviewed Differential Diagnosis Differential diagnosis: Likely upper respiratory infection, otitis media, sinusitis, viral infection, bronchitis, influenza, pharyngitis and other (COVID, pneumonia,) Imaging Data Radiologist's impression: ITS Impressions Chest X-Ray 09/03/24 13:13 IMPRESSION: No focal infiltrate or effusion. Elevation of the left hemidiaphragm with adjacent compressive atelectasis. Discharge Plan Discharge Clinical Impression: Atelectasis of left lung, Acute purulent bronchitis Sinusitis Qualifiers: Sinusitis location: maxillary Chronicity: acute Recurrence: non-recurrent Qualified Code(s): J01.00 - Acute maxillary sinusitis, unspecified Patient Disposition: Home Condition: Stable Instructions: Antibiotic Form, Sinusitis (ED), Acute Bronchitis (ED), Atelectasis (ED) Additional Instructions: Chest x-ray shows some left compressive atelectasis-no sign of effusion or pneumonia. Take prescription medications only as prescribed-albuterol inhaler and cephalexin Use incentive spirometer every 2-4 hours while awake Increase fluids and stay well hydrated Tylenol/motrin for pain/fever Flonase and OTC antihistamines as directed Vicks vapor rub to open sinuses Sinus rinses for congestion Cepacol spray, cough drops, throat lozenges, warm tea with honey/lemon, gargle salt water to soothe throat BRAT diet for diarrhea Clear liquids x 24 hours then advance as tolerated for nausea/vomiting Go to the ED if you develop a worsening in your condition- high fever not controlled by Tylenol or Motrin, dehydration, weakness, lethargy, shortness of breath, or chest pain. Follow up with your PCP in 3-5 days if symptoms persist. Patient Language: Syriac Prescriptions: New albuterol sulfate 90 mcg/actuation HFA aerosol inhaler 2 puff inhalation Q4-6H PRN (Reason: shortness of breath or wheezing) 30 Days Qty: 8.5 0RF cephalexin 500 mg tablet 500 mg PO Q8H 7 Days Qty: 21 0RF No Action cholecalciferol (vitamin D3) 50 mcg (2,000 unit) capsule 50 mcg PO DAILY (DME) lancets [OneTouch Delica Plus Lancet] 30 gauge misc See Rx Instructions .ROUTE .MEDSUPPLY Qty: 100 3RF Rx Instructions: check blood sugar once daily (DME) OneTouch Verio test strips Strip See Rx Instructions .ROUTE .MEDSUPPLY Qty: 100 3RF Rx Instructions: check blood sugar once daily valsartan-hydrochlorothiazide 80-12.5 mg tablet See Rx Instructions .ROUTE .COMPLEX Qty: 90 2RF Dose Instruction: TAKE 1 TABLET BY MOUTH EVERY DAY Rx Instructions: TAKE 1 TABLET BY MOUTH EVERY DAY Follow-up/Referrals: Noel Stark MD [Primary Care Provider] - Time of Disposition: 13:19 Quality NIHSS Nursing Documentation ED NIHSS nursing documentation: reviewed/agree
== END 2024-09-03 13:30 | disposition home or self-care (01) ==
PROVIDERS: Emergency Provider Nurse Practitioner Family; PCP Emergency Medicine
DX: J98.11 Atelectasis (principal); J20.9 Acute bronchitis, unspecified; J01.00 Acute maxillary sinusitis, unspecified; E78.00 Pure hypercholesterolemia, unspecified; M48.00 Spinal stenosis, site unspecified
CPT/HCPCS: 71046; 99213; G0463

== ENCOUNTER 2024-10-13 08:47 | Outpatient (CLI) | payer OTHER, SELFPAY ==
--- NOTE | ~2024-10-13 | MMUS_ITS ---
EXAMINATION: MM diagnostic john RT w jonathan, US breast RT limited HISTORY: Follow-up right breast asymmetry. TECHNIQUE: Additional 3-D tomosynthesis images of the right breast were performed and synthetic 2-D i mages were generated. CAD analysis was submitted and interpreted. High resolution Limited breast ultr asound was performed. COMPARISON: Comparison to multiple prior studies sequentially, with oldest reviewed study dated 10/26. BREAST PARENCHYMAL COMPOSITION: Not dense: There are scattered areas of fibroglandular density. FINDINGS: MAMMOGRAPHIC FINDINGS: There is a low-density mass upper outer quadrant of the right breast adjacent to the pectoralis muscl e. There are no suspicious calcifications or architectural distortion. ULTRASOUND: Limited right breast ultrasound: There are multiple intramammary lymph nodes at 9:00, largest 14 cm p osterior to the nipple measuring 1.5 cm with normal fatty hilum. No suspicious masses to suggest francisco gnancy. IMPRESSION: 1. No evidence for malignancy in the right breast. Benign findings. 2. Routine yearly screening mammogram and regular clinical breast examination are recommended. BI-RADS Category 2: Benign finding(s). Reviewed, dictated and finalized at location A. IMPRESSION: 1. No evidence for malignancy in the right breast. Benign findings. 2. Routine yearly screening mammogram and regular clinical breast examination a re recommended. BI-RADS Category 2: Benign finding(s).
--- OUTSIDE RECORDS SUMMARY | 2024-10-13 08:56 | XMS_ITS | Clinical Summary ---
Author Organization [facility] Address [address] [place] [address] Care Team Providers Care Manager Spring Name Role Phone Dane Spears MD Primary Care Provider [phone] Markus Eden MD Unavailable [phone] Allergies Active Allergy Reactions Criticality Noted Date Comments Aspirin Hives,Shortness of breath High Atorvastatin Unknown 10/14/2019 Erythromycin Base Vomiting Low 10/14/2019 [id number]-Fish Oil-Coq10 Dizziness,Headache,Other (See comments) Low 09/07/2021 Penicillins [...] Date Comments Anxiety Type 2 diabetes mellitus Hypertension Sinusitis Statin intolerance 06/15/2021 Mixed hyperlipidemia Family history of patent foramen ovale closed by adulthood 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 Arthritis Family History Medical History Relation Name Comments Allergy (severe) Brother 1 Joe Marcus Asthma Brother 1 Joe Marcus Hypertension Brother 1 Joe Amrit No Known Problems Brother 2 No Known Problems Brother 3 No Known Problems Brother 4 COPD Father Deeth () Cancer Father Brayan Marcus () Diabetes Father Brayan Marcus () Diabetes mellitus; Heart attack Father Brayan Marcus () Heart disease Father Brayan Marcus () Hypertension Father Brayan Marcus () Hypertension; Stroke Father Deeth () Stroke; Early Maternal Grandfather Aayush Velasquez n () Heart attack Maternal Grandfather Aayush Velasquez n () Heart disease Maternal Grandfather Aayush Velasquez n () Hypertension Maternal Grandfather Aayush Velasquez [...] Disease Miscarriages / Stillbirths Mother's Sister 3 Mandy Kadeem es Early Paternal Grandfather Early Paternal Grandmother had 22 children; all had sometime of kidney disease or diabetes Relation Name Status Comments Brother 1 Joe Amirt Alive Brother 2 Alive Brother 3 Alive Brother 4 Alive Father Brayan Marcus () (Age 72) Maternal Grandfather Aayush Mengen () Maternal Grandmother Ariana Ackerman Mother [...] on file Legal Sex Female 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 Gender Identity Not on file Sexual Orientation Straight 10/29/2019 6: 30 AM CDT 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 file Not on file [...] on file Medical Devices Implanted Type Area Building Contractor Device Identifier Shelf Expiration Date Model / Serial / Lot Kit Fracture Stabilit Mx Strl - [id number] Implanted:Qty: 1 on 10/31/2019 at [facility] [employer] 06/02/2020 [id number] / / [id number] Insurance O Advance Directives For more information, please contact: [phone] * Full Code (Latest Code Status on File) Date Activated Date Inactivated Comments 10/31/2019 10:20 AM 10/31/2019 2:33 PM Care Teams Manager Spring Relationship Specialty Start Date End Date Dane Spears MD [address] [place] [address] PCP - General Family Medicine 06/14/21 Markus Eden MD [address] [facility] [address] [place] [address] Referring Physician Obstetrics and Gynecology 08/02/21
--- OUTSIDE RECORDS SUMMARY | 2024-10-13 08:56 | XMS_ITS | Continuity of Care Document ---
Author Organization [facility] Address [id number] [place] [address] [place] [address] Phone Care Team Providers Care Habilitation Worker Name Role Phone Jorge Au DO Unavailable Unavailable Advance Directives Directive Yes / No Effective Date File Name No Information Encounters Encounter Description Practice Location Reason(s) For Visit Diagnoses Date Provider Providers Copied on Encounter [facility], [address], [place], [place], [id number], [place] tel:[phone] [facility] No Information Angely Fontaine. [address] [employer] [facility], [place], [address], [place]. tel:[phone] Family History Family Member Type Diagnosis Age [...]
== END 2024-10-13 08:48 | disposition home or self-care (01) ==
LOC: ANHIMG 08:49
PROVIDERS: PCP Emergency Medicine; Visit Provider Obstetrics & Gynecology
DX: R92.1 Mammographic calcification found on diagnostic imaging of breast (principal); N63.10 Unspecified lump in the right breast, unspecified quadrant
CPT/HCPCS: 76642; 77061; 77065; G0279